=== PATIENT | female | born 1940 | race American Indian/Alaskan Native ===

== ENCOUNTER 2017-09-30 13:46 | Inpatient (IN) | payer MEDICARE ==
[2017-09-30 13:47] VITALS: BMI 48.0
[2017-09-30] MEDS ORDERED: Sodium Chloride 0.9% 500 ML IV ONE ×2 (14:34→14:48)
[2017-09-30 14:42] LABS: HEMOGLOBIN 12.9 g/dL (11.0-16.0); MONO # 0.5 K/uL (0.0-0.8); NEUT # 3.3 K/uL (1.8-7.0); NRBC % 0.1 % (0.0-2.0); WHITE BLOOD COUNT 4.6 K/uL (4.8-10.8)
[2017-09-30 14:46] LABS: BASO % 0.5 % (0.0-2.0); EOS % 0.8 % (0.0-4.0); LYMPH # 0.6 K/uL (1.0-4.3); LYMPH % 13.9 % (20.0-40.0); MEAN CORPUSCULAR HEMOGLOBIN 23.3 pg (27.0-31.0); MEAN PLATELET VOLUME 10.5 fL (7.2-11.7); MONO % 11.4 % (0.0-10.0); NEUT % 73.4 % (50.0-75.0); RBC 5.53 Mil/uL (3.80-5.20); RED CELL DISTRIBUTION WIDTH 19.2 % (11.5-14.5)
[2017-09-30 14:50] LABS: INR 1.2; MEAN CELL VOLUME 75.3 fL (81.0-99.0); PROTHROMBIN TIME 12.9 SECONDS (9.7-12.2)
[2017-09-30 15:03] LABS: ALBUMIN 4.4 g/dL (3.5-5.0)
[2017-09-30 15:04] LABS: CALCIUM 9.2 mg/dl (8.6-10.4); GFR AFRICAN-AMERICAN > 60; GFR NON-AFRICAN AMERICAN 54
[2017-09-30 15:07] LABS: ALT/SGPT 8 U/L (9-52); AST/SGOT 42 U/L (14-36); BLOOD UREA NITROGEN 8 mg/dL (7-17)
--- NOTE | 2017-09-30 15:33 | C.PDOC ---
History Of Present Illness Pt had a near-syncopal episode at home today. Time Seen by Provider: 09/30/17 14:22 Chief Complaint (Nursing): Dizziness/Lightheaded History Per: Patient Onset/Duration Of Symptoms: Hrs (this afternoon) Current Symptoms Are (Timing): Still Present Current Symptoms: Generalized weakness Activity At Onset Of Symptoms: Had Just Stood up Fall Associated With With Symptoms: No Severity: Moderate Additional History Per: Prior Records - Symptoms Of CVA Recent Head Trauma: No Past Medical History Reviewed: Historical Data, Nursing Documentation, Vital Signs Vital Signs: Last Vital Signs Temp 97.9 F 09/30/17 13:59 Pulse 61 09/30/17 13:59 Resp 16 09/30/17 13:59 BP 155/82 H 09/30/17 13:59 Pulse Ox 99 09/30/17 13:59 - Medical History PMH: Anemia, Arthritis, Atrial Fibrillation, CAD, CHF, Diabetes, Diverticulitis (Diverticulosis), Gastritis, HTN, Hypercholesterolemia Other PMH: Strabismus Surgical History: CABG (2012), Coronary Stent, Endoscopy (sm intestine 07/15/13) - [facility] Procedures COLONOSCOPY (06/10/13) CORONAR ARTERIOGR-2 CATH (06/10/13) INSERT OF MONITOR DEV INTO CHEST SUBCU/FASCIA, PERC APPROACH (04/22/15) LEFT HEART CARDIAC CATH (06/10/13) LT HEART ANGIOCARDIOGRAM (06/10/13) OTHER ENDOSCOPY OF SM INTEST (07/15/13) PACKED CELL TRANSFUSION (11/07/14) Family History: States: Unknown Family Hx - Social History Hx Tobacco Use: No Hx Alcohol Use: No Hx Substance Use: No - Immunization History Hx Tetanus Toxoid Vaccination: No Hx Influenza Vaccination: No Hx Pneumococcal Vaccination: No Review Of Systems Except As Marked, All Systems Reviewed And Found Negative. Constitutional: Positive for: Malaise. Negative for: Fever Cardiovascular: Negative for: Chest Pain Respiratory: Negative for: Shortness of Breath Gastrointestinal: Positive for: Nausea. Negative for: Vomiting, Abdominal Pain , Diarrhea Musculoskeletal: Negative for: Neck Pain, Back Pain Skin: Negative for: Rash Neurological: Negative for: Weakness, Numbness, Seizures, Altered Mental Status Physical Exam - Physical Exam Appears: Non-toxic, No Acute Distress Skin: Normal Color, Warm, Dry Head: Atraumatic, Normacephalic Eye(s): bilateral: PERRL, right: Other (Strabismus) Oral Mucosa: Dry Neck: Normal ROM, Supple Cardiovascular: Rhythm Regular Respiratory: Normal Breath Sounds, No Accessory Muscle Use Gastrointestinal/Abdominal: Soft, No Tenderness Extremity: Normal ROM, No Pedal Edema, No Calf Tenderness Neurological/Psych: Oriented x3, No Cerebellar Signs, Normal Motor, Normal Sensation ED Course And Treatment - Laboratory Results Result Diagrams: 09/30/17 14:39 09/30/17 14:39 ECG: Interpreted By Me, Viewed By Me ECG Rhythm: Sinus Rhythm, R BBB, Nonspecific Changes ECG Interpretation: Abnormal Interpretation Of ECG: Frequent PACs. LVH. Rate From EC O2 Sat by Pulse Oximetry: 99 Pulse Ox Interpretation: Normal Progress - Interventions Interventions:: Observation, Intravenous fluid - Data Reviewed Data Reviewed: Lab, Diagnostic imaging, EKG, Old records - Patient Status Patient status: Unchanged - Continuity of Care Discussed patient case with:: Patient, ED Nurse, PMD Disposition Discussed With : Darren Guardado Comment: He accepted pt on his service. Doctor Will See Patient In The: Hospital Counseled Patient/Family Regarding: Studies Performed, Diagnosis - Disposition Disposition: HOSPITALIZED Disposition Time: 15:36 Condition: FAIR Instructions: Weakness (ED) - Clinical Impression Clinical Impression: Near syncope, Nausea, Generalized weakness
[2017-09-30 15:38] LABS: SQUAMOUS EPITHIAL 1 /hpf (0-5); URINE BACTERIA RARE (<OCC); URINE BILIRUBIN NEGATIVE (NEGATIVE); URINE BLOOD 2+ (NEGATIVE); URINE CLARITY Hazy (Clear); URINE COLOR Straw (YELLOW); URINE GLUCOSE (UA) NORMAL (Normal); URINE LEUKOCYTE ESTERASE 2+ Leu/uL (Negative); URINE PROTEIN 1+ mg/dL (NEGATIVE); URINE UROBILINOGEN NORMAL mg/dL (0.2-1.0)
--- NOTE | 2017-09-30 16:40 | CP.PCM.HP ---
History of Present Illness - History of Present Illness History of Present Illness: Chief complaint: Weakness History of present illness: 77-year-old female with history of diabetes, hypertension, aortic valve replacement, CABG 1, recurrent GI bleed in the past. Patient had a few episodes of palpitation, dizziness in the past. A year and a half ago patient was hospitalized, at the time even monitoring was placed on the patient, and being managed. Patient during that time had a repeat episodes of intermittent atrial fibrillation. The patient was not able to anticoagulate because of the recurrent GI bleed in the past in spite of the extensive workup including capsule endoscopy there was no source of bleeding identified, but after the CABG, valve replacement patient is not having any bleeding episodes, her hemoglobin level is stable. Today she was doing well, around 1 PM suddenly she felt weakness generalized, associated with palpitation. She was not able to move at that time. She felt also extremely dizzy at the time no sweating noted, denied any chest pain. She felt about to fall. She stabilized, sat on the bed and called a cab and came to the emergency room. Past medical history: Hypertension diabetes CAD, aortic stenosis GI bleed Surgical history: Patient had a colonoscopy, endoscopy, capsule endoscopy, CABG 1, I did well with replacement. Allergies allergic to penicillin Family history significant for CAD, hypertension Medications reviewed Review of systems: Patient is currently having no headache or visual symptom. Episode of dizziness palpitation noted. No chest pain or shortness of breath. Leg swelling negative on examination: Vital signs stable. Chest good air entry bilaterally NONTENDER ABDOMEN NO PEDAL EDEMA CAPACITY ANALYST ALERT AWAKE ORIENTED 3 NO FUNCTIONAL NEUROLOGICAL DEFICIT MIDLINE SCAR NOTED IN THE STERNAL REGION Labs reviewed Mild elevation of the bilirubin noted. Urine showing evidence of possible UTI. EKG showing right bundle branch block pattern PVCs noted Chest x-ray pending Assessment and plan: 77-year-old female with a history of diabetes hypertension and hypercholesterolemia CAD, status post CABG. coronary artery bypass grafting 1 Aortic valve replacement Patient has even monitoring In the past patient had a few episodes of intermittent atrial fibrillation and tachycardia. Patient is currently not on any antiplatelet medications to GI bleed. We will continue to monitor the patient. Patient has a possible acute arrhythmia tachyarrhythmia likely, causing possible syncopal attack. Underlying CAPACITY ANALYST cause cannot be ruled out. Cardiology violation. Loop recorder Will get the the the analysisi possibly. DVT GI prophylaxis and will follow the patient Present on Admission - Present on Admission Any Indicators Present on Admission: No History of DVT/PE: No History of Uncontrolled Diabetes: No Urinary Catheter: No Decubitus Ulcer Present: No Past Patient History - Infectious Disease Hx of Infectious Diseases: None - Past Medical History & Family History Past Medical History?: Yes - Past Social History Smoking Status: Never Smoked - CARDIAC Hx Atrial Fibrillation: Yes Hx Congestive Heart Failure: Yes Hx Hypercholesterolemia: Yes Hx Hypertension: Yes - PULMONARY Hx Respiratory Disorders: No - NEUROLOGICAL Hx Neurological Disorder: Yes Hx Dizziness: Yes - HEENT Hx HEENT Problems: No - RENAL Hx Chronic Kidney Disease: No - ENDOCRINE/METABOLIC Hx Endocrine Disorders: Yes Hx Diabetes Mellitus Type 2: Yes - HEMATOLOGICAL/ONCOLOGICAL Hx Anemia: Yes - INTEGUMENTARY Hx Dermatological Problems: No - MUSCULOSKELETAL/RHEUMATOLOGICAL Hx Arthritis: Yes - GASTROINTESTINAL Hx Diverticulitis: Yes (Diverticulosis) Hx Gastritis: Yes - GENITOURINARY/GYNECOLOGICAL Hx Genitourinary Disorders: No - PSYCHIATRIC Hx Substance Use: No - SURGICAL HISTORY Hx Coronary Artery Bypass Graft: Yes (2012) Hx Coronary Stent: Yes - ANESTHESIA Hx Anesthesia: Yes Hx Anesthesia Reactions: No Hx Malignant Hyperthermia: No Meds Allergies/Adverse Reactions: Allergies Allergy/AdvReac Type Severity Reaction Status Date / Time Penicillins Allergy RASH Verified 09/30/17 13:55 Results - Vital Signs Recent Vital Signs: Last Vital Signs Temp 97.9 F 09/30/17 13:59 Pulse 61 09/30/17 13:59 Resp 16 09/30/17 13:59 BP 155/82 H 09/30/17 13:59 Pulse Ox 99 09/30/17 15:37 - Labs Result Diagrams: 09/30/17 14:39 09/30/17 14:39 Labs: Laboratory Results - last 24 hr 09/30/17 09/30/17 09/30/17 14:39 14:39 14:39 WBC 4.6 L RBC 5.53 H Hgb 12.9 Hct 41.6 MCV 75.3 L D MCH 23.3 L MCHC 31.0 L RDW 19.2 H Plt Count 117 L D MPV 10.5 Neut % (Auto) 73.4 Lymph % (Auto) 13.9 L Bennett % (Auto) 11.4 H Eos % (Auto) 0.8 Baso % (Auto) 0.5 Neut # (Auto) 3.3 Lymph # (Auto) 0.6 L Bennett # (Auto) 0.5 Eos # (Auto) 0.0 Baso # (Auto) 0.0 Differential Comment PT 12.9 H INR 1.2 APTT 32 Sodium 144 Potassium 4.9 Chloride 96 L Carbon Dioxide 27 Anion Gap 25 H BUN 8 Creatinine 1.0 Est GFR ( Amer) > 60 Est GFR (Non-Af Amer) 54 POC Glucose (mg/dL) Random Glucose 79 Calcium 9.2 Magnesium 2.2 Total Bilirubin 1.7 H AST 42 H ALT 8 L D Alkaline Phosphatase 75 Troponin I 0.0450 Total Protein 8.7 H Albumin 4.4 Globulin 4.3 H Albumin/Globulin Ratio 1.0 Urine Color Urine Clarity Urine pH Ur Specific [place] Urine Protein Urine Glucose (UA) Urine Ketones Urine Blood Urine Nitrate Urine Bilirubin Urine Urobilinogen Ur Leukocyte Esterase Urine WBC (Auto) Urine RBC (Auto) Ur Squamous Epith Cells Urine Bacteria 09/30/17 09/30/17 15:31 15:55 WBC RBC Hgb Hct MCV MCH MCHC RDW Plt Count MPV Neut % (Auto) Lymph % (Auto) Bennett % (Auto) Eos % (Auto) Baso % (Auto) Neut # (Auto) Lymph # (Auto) Bennett # (Auto) Eos # (Auto) Baso # (Auto) Differential Comment PT INR APTT Sodium Potassium Chloride Carbon Dioxide Anion Gap BUN Creatinine Est GFR ( Amer) Est GFR (Non-Af Amer) POC Glucose (mg/dL) 70 Random Glucose Calcium Magnesium Total Bilirubin AST ALT Alkaline Phosphatase Troponin I Total Protein Albumin Globulin Albumin/Globulin Ratio Urine Color Straw Urine Clarity Hazy Urine pH 6.0 Ur Specific [place] 1.004 Urine Protein 1+ H Urine Glucose (UA) Normal Urine Ketones 2+ H Urine Blood 2+ H Urine Nitrate Negative Urine Bilirubin Negative Urine Urobilinogen Normal Ur Leukocyte Esterase 2+ H Urine WBC (Auto) 12 H Urine RBC (Auto) 13 H Ur Squamous Epith Cells 1 Urine Bacteria Rare
[2017-10-01] MEDS: Pantoprazole 40 mg EC Tab PO SCH (10:04)
[2017-10-01 12:00] LABS: HEMOGLOBIN 12.2 g/dL (11.0-16.0); MEAN CELL VOLUME 75.2 fL (81.0-99.0); MEAN CORPUSCULAR HEMOGLOBIN 23.4 pg (27.0-31.0); MEAN CORPUSCULAR HGB CONC 31.2 g/dL (33.0-37.0); MEAN PLATELET VOLUME 10.3 fL (7.2-11.7); RBC 5.22 Mil/uL (3.80-5.20); RED CELL DISTRIBUTION WIDTH 19.2 % (11.5-14.5); WHITE BLOOD COUNT 4.1 K/uL (4.8-10.8)
[2017-10-01 12:08] LABS: ALBUMIN 3.7 g/dL (3.5-5.0); ALT/SGPT 14 U/L (9-52); AST/SGOT 27 U/L (14-36); BLOOD UREA NITROGEN 9 mg/dL (7-17); CALCIUM 9.2 mg/dl (8.6-10.4); CK-MB 0.89 ng/mL (0.0-3.38); GFR AFRICAN-AMERICAN > 60; GFR NON-AFRICAN AMERICAN 54
[2017-10-01] MEDS ORDERED: Potassium Chloride 20 mEq ER Tab PO STA ×2 (12:10→12:11)
[2017-10-01 16:21] VITALS: RESP 20
--- NOTE | 2017-10-01 19:49 | CP.PCM.PN ---
Subjective - Date & Time of Evaluation Date of Evaluation: 10/01/17 Time of Evaluation: 19:45 - Subjective Subjective: Patient noted to have a low potassium today. Which was supplemented. The patient is having regular bowel movements. No dark color stools noted. No chest pain, no dizziness, but feeling slightly weak Patient was seen by commanding officer traffic division, already echo, used to be monitoring the loop recorder On examination: Vital signs stable. Blood sugar is elevated Will get a hemoglobin A1c in the morning. Pedal edema Assessment and recommendation: 77-year-old female with a history of CAD, status post CABG 1, aortic valve replacement. History of GI bleed and multiple times in the past, received blood transfusion, also iron infusion chronic anemia Diabetes controlled well, but the episode of low blood sugar yesterday also uncontrolled now Will monitor and will follow the patient. Objective - Vital Signs/Intake and Output Vital Signs (last 24 hours): Temp Pulse Resp BP Pulse Ox 97.8 F 68 20 124/77 99 10/01/17 15:19 10/01/17 15:52 10/01/17 15:19 10/01/17 15:19 10/01/17 15:19 Intake and Output: 10/01/17 10/02/17 18:59 06:59 Intake Total 480 Balance 480 - Medications Medications: Current Medications Heparin Sodium (Porcine) (Heparin) 5,000 units SC Q8 [facility] Last Admin: 10/01/17 13:26 Dose: Not Given Losartan Potassium (Cozaar) 25 mg PO DAILY [facility] Last Admin: 10/01/17 10:04 Dose: 25 mg Pantoprazole Sodium (Protonix Ec Tab) 40 mg PO DAILY [facility] Last Admin: 10/01/17 10:04 Dose: 40 mg Rosuvastatin Calcium (Crestor) 20 mg PO HS [facility] Last Admin: 09/30/17 21:54 Dose: 20 mg - Labs Labs: 10/01/17 11:30 10/01/17 11:30 PT 12.9 SECONDS (9.7-12.2) H 09/30/17 14:39 INR 1.2 09/30/17 14:39 APTT 32 SECONDS (21-34) 09/30/17 14:39
--- NOTE | 2017-10-01 22:51 | CP.PCM.CON ---
History of Present Illness - History of Present Illness History of Present Illness: 77 F with hx of CAD, s/p CABG x 1 and SAVR GIB admitted for dizziness and hypoglycemia Check ECHO and Carotid Will follow Past Patient History - Infectious Disease Hx of Infectious Diseases: None - Past Medical History & Family History Past Medical History?: Yes - Past Social History Smoking Status: Never Smoked - CARDIAC Hx Atrial Fibrillation: Yes Hx Congestive Heart Failure: Yes Hx Hypercholesterolemia: Yes Hx Hypertension: Yes - PULMONARY Hx Respiratory Disorders: No - NEUROLOGICAL Hx Neurological Disorder: Yes Hx Dizziness: Yes - HEENT Hx HEENT Problems: No - RENAL Hx Chronic Kidney Disease: No - ENDOCRINE/METABOLIC Hx Endocrine Disorders: Yes Hx Diabetes Mellitus Type 2: Yes - HEMATOLOGICAL/ONCOLOGICAL Hx Anemia: Yes - INTEGUMENTARY Hx Dermatological Problems: No - MUSCULOSKELETAL/RHEUMATOLOGICAL Hx Arthritis: Yes - GASTROINTESTINAL Hx Diverticulitis: Yes (Diverticulosis) Hx Gastritis: Yes - GENITOURINARY/GYNECOLOGICAL Hx Genitourinary Disorders: No - PSYCHIATRIC Hx Substance Use: No - SURGICAL HISTORY Hx Coronary Artery Bypass Graft: Yes (2012) Hx Coronary Stent: Yes - ANESTHESIA Hx Anesthesia: Yes Hx Anesthesia Reactions: No Hx Malignant Hyperthermia: No Meds Allergies/Adverse Reactions: Allergies Allergy/AdvReac Type Severity Reaction Status Date / Time Penicillins Allergy RASH Verified 09/30/17 13:55 - Medications Medications: Current Medications Heparin Sodium (Porcine) (Heparin) 5,000 units SC Q8 [facility] Last Admin: 10/01/17 21:18 Dose: Not Given Losartan Potassium (Cozaar) 25 mg PO DAILY [facility] Last Admin: 10/01/17 10:04 Dose: 25 mg Pantoprazole Sodium (Protonix Ec Tab) 40 mg PO DAILY [facility] Last Admin: 10/01/17 10:04 Dose: 40 mg Rosuvastatin Calcium (Crestor) 20 mg PO HS [facility] Last Admin: 10/01/17 21:18 Dose: 20 mg Results - Vital Signs Recent Vital Signs: Last Vital Signs Temp 97.8 F 10/01/17 15:19 Pulse 68 10/01/17 15:52 Resp 20 10/01/17 15:19 BP 124/77 10/01/17 15:19 Pulse Ox 99 10/01/17 15:19 - Labs Result Diagrams: 10/01/17 11:30 10/01/17 11:30 Labs: Laboratory Results - last 24 hr 09/30/17 09/30/17 09/30/17 13:58 14:04 21:18 WBC RBC Hgb Hct MCV MCH MCHC RDW Plt Count MPV Differential Comment Sodium Potassium Chloride Carbon Dioxide Anion Gap BUN Creatinine Est GFR ( Amer) Est GFR (Non-Af Amer) POC Glucose (mg/dL) 64 L 63 L 276 H Random Glucose Calcium Magnesium Total Bilirubin AST ALT Alkaline Phosphatase Total Creatine Kinase CK-MB (Mass) Troponin I Total Protein Albumin Globulin Albumin/Globulin Ratio Stool Occult Blood 10/01/17 10/01/17 10/01/17 05:00 08:59 11:06 WBC RBC Hgb Hct MCV MCH MCHC RDW Plt Count MPV Differential Comment Sodium Potassium Chloride Carbon Dioxide Anion Gap BUN Creatinine Est GFR ( Amer) Est GFR (Non-Af Amer) POC Glucose (mg/dL) 223 H 192 H Random Glucose Calcium Magnesium Total Bilirubin AST ALT Alkaline Phosphatase Total Creatine Kinase CK-MB (Mass) Troponin I Total Protein Albumin Globulin Albumin/Globulin Ratio Stool Occult Blood Negative 10/01/17 10/01/17 10/01/17 11:30 11:30 16:35 WBC 4.1 L RBC 5.22 H Hgb 12.2 Hct 39.3 MCV 75.2 L MCH 23.4 L MCHC 31.2 L RDW 19.2 H Plt Count 114 L MPV 10.3 Differential Comment Sodium 142 Potassium 2.4 L* D Chloride 95 L Carbon Dioxide 35 H Anion Gap 15 BUN 9 Creatinine 1.0 Est GFR ( Amer) > 60 Est GFR (Non-Af Amer) 54 POC Glucose (mg/dL) 162 H Random Glucose 203 H Calcium 9.2 Magnesium 2.2 Total Bilirubin 0.7 AST 27 ALT 14 Alkaline Phosphatase 75 Total Creatine Kinase 217 H CK-MB (Mass) 0.89 Troponin I 0.0240 Total Protein 7.3 Albumin 3.7 Globulin 3.6 Albumin/Globulin Ratio 1.0 Stool Occult Blood 10/01/17 21:07 WBC RBC Hgb Hct MCV MCH MCHC RDW Plt Count MPV Differential Comment Sodium Potassium Chloride Carbon Dioxide Anion Gap BUN Creatinine Est GFR ( Amer) Est GFR (Non-Af Amer) POC Glucose (mg/dL) 212 H Random Glucose Calcium Magnesium Total Bilirubin AST ALT Alkaline Phosphatase Total Creatine Kinase CK-MB (Mass) Troponin I Total Protein Albumin Globulin Albumin/Globulin Ratio Stool Occult Blood
[2017-10-02 07:38] LABS: NEUT # 2.5 K/uL (1.8-7.0); WHITE BLOOD COUNT 4.2 K/uL (4.8-10.8)
[2017-10-02 07:43] LABS: BASO % 0.7 % (0.0-2.0); EOS % 1.1 % (0.0-4.0); HEMOGLOBIN 12.4 g/dL (11.0-16.0); MEAN CORPUSCULAR HEMOGLOBIN 23.6 pg (27.0-31.0); MEAN CORPUSCULAR HGB CONC 31.5 g/dL (33.0-37.0); MEAN PLATELET VOLUME 10.3 fL (7.2-11.7); MONO # 0.6 K/uL (0.0-0.8); MONO % 13.8 % (0.0-10.0); NEUT % 60.4 % (50.0-75.0); NRBC % 0.2 % (0.0-2.0); RBC 5.23 Mil/uL (3.80-5.20); RED CELL DISTRIBUTION WIDTH 19.2 % (11.5-14.5)
[2017-10-02 07:58] LABS: ALBUMIN 3.7 g/dL (3.5-5.0); CALCIUM 9.5 mg/dl (8.6-10.4)
[2017-10-02] MEDS: Pantoprazole 40 mg EC Tab PO SCH (10:59)
[2017-10-02] MEDS ORDERED: Potassium Chloride 20 mEq ER Tab PO ONE ×4 (11:45→21:00)
--- NOTE | 2017-10-02 14:00 | VASCLAB ---
PROCEDURE: HISTORY: Dizziness COMPARISON: None available. TECHNIQUE: Grayscale and duplex Doppler evaluation of the cervical carotid and vertebral arteries were performed. The common carotid, carotid bifurcations and cervical Internal Carotid Artery (ICA) and proximal External Carotid Artery (ECA) were evaluated. The vertebral arteries were evaluated for gross patency and flow direction. Report prepared by Aneesh Patterson, BS, RVT FINDINGS: RIGHT CAROTID ARTERIES: 1. Common Carotid Artery: No significant focal plaque formation of the right common carotid artery. Maximum Peak Systolic velocity: 63 cm/sec: End-diastolic velocity 13 cm/sec. 2. Carotid Bifurcation: plaque formation. Maximum Peak Systolic velocity: 63 cm/sec: End-diastolic velocity 10 cm/sec. 3. Internal Carotid Artery: Plaque description: 3.1. Proximal Segment: Peak systolic velocity 65 cm/sec: End-diastolic velocity 19 cm/sec - % stenosis 0-15% 3.2. Middle Segment: Peak systolic velocity 74 cm/sec: End-diastolic velocity 18 cm/sec - % stenosis 0-15% 3.3. Distal Segment: Peak systolic velocity 73 cm/sec: End-diastolic velocity 20 cm/sec - % stenosis 0-15% 4. External Carotid Artery: No significant focal plaque formation. Peak systolic velocity 84 cm/sec 5. ICA/CCA Ratio: 1.2 LEFT CAROTID ARTERIES: 1. Common Carotid Artery: No significant focal plaque formation of the left common carotid artery. Maximum Peak Systolic velocity: 70 cm/sec: End-diastolic velocity 12 cm/sec. 2. Carotid Bifurcation: plaque formation. Maximum Peak Systolic velocity: 60 cm/sec: End-diastolic velocity 18 cm/sec. 3. Internal Carotid Artery: Plaque description: 3.1. Proximal Segment: Peak systolic velocity 98 cm/sec: End-diastolic velocity 22 cm/sec - % stenosis 0-15% 3.2. Middle Segment: Peak systolic velocity 82 cm/sec: End-diastolic velocity 24 cm/sec - % stenosis 0-15% 3.3. Distal Segment: Peak systolic velocity 54 cm/sec: End-diastolic velocity 16 cm/sec - % stenosis 0-15% 4. External Carotid Artery: No significant focal plaque formation. Peak systolic velocity 86 cm/sec 5. ICA/CCA Ratio: 1.4 VERTEBRAL ARTERIES: 1. Right Vertebral Artery: The right vertebral artery flow direction is antegrade. 2. Left Vertebral Artery: The left vertebral artery flow direction is antegrade. OTHER FINDINGS: 1. Right Brachial Blood pressure: 128 mmHg. 2. Left Brachial Blood pressure: 120 mmHg. IMPRESSION: RIGHT: Duplex scan does not suggest hemodynamically significant stenosis of the right extracranial carotid arteries. Tortuosity of the right internal carotid artery. LEFT: Duplex scan does not suggest hemodynamically significant stenosis of the left extracranial carotid arteries.
[2017-10-02 18:32] LABS: ALBUMIN 3.9 g/dL (3.5-5.0); ALT/SGPT 16 U/L (9-52); AST/SGOT 31 U/L (14-36); BLOOD UREA NITROGEN 10 mg/dL (7-17); CALCIUM 9.6 mg/dl (8.6-10.4); GFR AFRICAN-AMERICAN > 60; GFR NON-AFRICAN AMERICAN 54
--- NOTE | 2017-10-02 23:36 | CP.PCM.PN ---
Subjective - Date & Time of Evaluation Date of Evaluation: 10/02/17 Time of Evaluation: 16:20 - Subjective Subjective: Patient seen and evaluated Carotids: Normal ECHO: Normal EF, Normal functioning of SAVR Objective - Vital Signs/Intake and Output Vital Signs (last 24 hours): Temp Pulse Resp BP Pulse Ox 97.8 F 89 20 120/70 99 10/02/17 15:20 10/02/17 16:10 10/02/17 15:20 10/02/17 15:20 10/02/17 15:20 - Medications Medications: Current Medications Heparin Sodium (Porcine) (Heparin) 5,000 units SC Q8 [facility] Last Admin: 10/02/17 21:09 Dose: Not Given Losartan Potassium (Cozaar) 25 mg PO DAILY [facility] Last Admin: 10/02/17 10:59 Dose: 25 mg Pantoprazole Sodium (Protonix Ec Tab) 40 mg PO DAILY [facility] Last Admin: 10/02/17 10:59 Dose: 40 mg Rosuvastatin Calcium (Crestor) 20 mg PO HS [facility] Last Admin: 10/02/17 21:24 Dose: 20 mg - Labs Labs: 10/02/17 07:26 10/02/17 18:15 PT 12.9 SECONDS (9.7-12.2) H 09/30/17 14:39 INR 1.2 09/30/17 14:39 APTT 32 SECONDS (21-34) 09/30/17 14:39
[2017-10-03] MEDS: Pantoprazole 40 mg EC Tab PO SCH (09:36)
[2017-10-03 10:17] LABS: CALCIUM 9.5 mg/dl (8.6-10.4)
--- NOTE | 2017-10-03 19:00 | CP.PCM.PN ---
Subjective - Date & Time of Evaluation Date of Evaluation: 10/03/17 Time of Evaluation: 19:00 - Subjective Subjective: Patient is feeling well. No chest pain or shortness of breath. Denies any nausea vomiting. Weakness noted. On examination: HEENT PERRLA, neck supple No thyromegaly was noted and no cervical adenopathy noted Chest bilateral good air entry, no wheezing or rales noted CVS regular heart sound, no murmur Abdomen soft and no organomegaly Extremities no pedal edema, no leg swelling, pedal pulses are good. 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 Assessment/recommendation: 77-year-old female with history of hypertension Hyperlipidemia Diabetes. Elevated blood sugar noted. Will monitor. Underlying arrhythmias cannot be ruled out. Seen by capacitor tester. Awaiting the result from loop recorder interrogation. Will follow the patient The results are negative, will DC the patient in the morning Objective - Vital Signs/Intake and Output Vital Signs (last 24 hours): Temp Pulse Resp BP Pulse Ox 98.0 F 93 H 20 113/74 99 10/03/17 15:07 10/03/17 15:07 10/03/17 15:07 10/03/17 15:07 10/03/17 15:07 - Medications Medications: Current Medications Heparin Sodium (Porcine) (Heparin) 5,000 units SC Q8 [facility] Last Admin: 10/03/17 14:48 Dose: Not Given Losartan Potassium (Cozaar) 25 mg PO DAILY [facility] Last Admin: 10/03/17 09:36 Dose: 25 mg Pantoprazole Sodium (Protonix Ec Tab) 40 mg PO DAILY [facility] Last Admin: 10/03/17 09:36 Dose: 40 mg Rosuvastatin Calcium (Crestor) 20 mg PO HS [facility] Last Admin: 10/02/17 21:24 Dose: 20 mg - Labs Labs: 10/02/17 07:26 10/03/17 07:38 PT 12.9 SECONDS (9.7-12.2) H 09/30/17 14:39 INR 1.2 09/30/17 14:39 APTT 32 SECONDS (21-34) 09/30/17 14:39
--- NOTE | 2017-10-03 19:00 | CP.PCM.PN ---
Subjective - Date & Time of Evaluation Date of Evaluation: 10/02/17 Time of Evaluation: 18:59 - Subjective Subjective: Patient is feeling well. No chest pain or shortness of breath. Denies any nausea vomiting. Weakness noted. On examination: HEENT PERRLA, neck supple No thyromegaly was noted and no cervical adenopathy noted Chest bilateral good air entry, no wheezing or rales noted CVS regular heart sound, no murmur Abdomen soft and no organomegaly Extremities no pedal edema, no leg swelling, pedal pulses are good. 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 Assessment/recommendation: 77-year-old female with history of hypertension Hyperlipidemia Diabetes. Elevated blood sugar noted. Will monitor. Underlying arrhythmias cannot be ruled out. Seen by adjunct faculty for medical terminology. Awaiting the result from loop recorder interrogation. Will follow the patient Objective - Vital Signs/Intake and Output Vital Signs (last 24 hours): Temp Pulse Resp BP Pulse Ox 98.0 F 93 H 20 113/74 99 10/03/17 15:07 10/03/17 15:07 10/03/17 15:07 10/03/17 15:07 10/03/17 15:07 - Medications Medications: Current Medications Heparin Sodium (Porcine) (Heparin) 5,000 units SC Q8 [facility] Last Admin: 10/03/17 14:48 Dose: Not Given Losartan Potassium (Cozaar) 25 mg PO DAILY [facility] Last Admin: 10/03/17 09:36 Dose: 25 mg Pantoprazole Sodium (Protonix Ec Tab) 40 mg PO DAILY [facility] Last Admin: 10/03/17 09:36 Dose: 40 mg Rosuvastatin Calcium (Crestor) 20 mg PO HS [facility] Last Admin: 10/02/17 21:24 Dose: 20 mg - Labs Labs: 10/02/17 07:26 10/03/17 07:38 PT 12.9 SECONDS (9.7-12.2) H 09/30/17 14:39 INR 1.2 09/30/17 14:39 APTT 32 SECONDS (21-34) 09/30/17 14:39
--- NOTE | 2017-10-03 22:34 | CARD ---
APPROVED REPORT EXAM: Two-dimensional and M-mode echocardiogram with Doppler and color Doppler. Other Information Quality : GoodRhythm : INDICATION Dizziness and Vertigo Palpitations Surgery/Intervention Status/Post Aortic Valve Replacement: Bioprosthetic CABG: Date: 2012 RISK FACTORS Obesity Diabetes 2D DIMENSIONS IVSd1.3 (0.7-1.1cm)LVDd3.8 (3.9-5.9cm) LVOT Diameter1.7 (1.8-2.4cm)PWd1.5 (0.7-1.1cm) LVDs1.8 (2.5-4.0cm)FS (%) 51.7 % LVEF (%)83.5 (>50%) M-Mode DIMENSIONS RVDd1.46 (2.1-3.2cm)Left Atrium (MM)3.87 (2.5-4.0cm) IVSd1.53 (0.7-1.1cm)Aortic Root2.44 (2.2-3.7cm) LVDd4.07 (4.0-5.6cm)Aortic Cusp Exc.1.49 (1.5-2.0cm) PWd1.27 (0.7-1.1cm)FS (%) 50 % LVDs2.05 (2.0-3.8cm)LVEF (%)81 (>50%) Aortic Valve AoV Peak Hanwnmdm355.0cm/sAoV VTI56.2cmAO Peak GR.36mmHg LVOT Peak Evgopaqy908.8cm/sLVOT VTI26.10cmAO Mean GR.19mmHg EMGA (VMAX)0.81as3FPM (VTI)1.00cm2 Mitral Valve MV E Bcusiuwo82.8cm/sMV A Tsoqauwy589.1cm/sE/A ratio0.8 TDI E/Lateral E'0.0E/Medial E'0.0 Tricuspid Valve TR Peak Ndwuvhbe125be/sTR Peak Gr.48ylCzYPKL48zwZu LEFT VENTRICLE There is mild concentric left ventricular hypertrophy. Left ventricle systolic function is normal. The Ejection Fraction is >70%. There is normal LV segmental wall motion. The left ventricular diastolic function is abnormal. Transmitral Doppler flow pattern is Grade I-abnormal relaxation pattern. No left ventricle thrombus noted on this study. RIGHT VENTRICLE The right ventricle is normal size. The right ventricular systolic function is normal. ATRIA The left atrium size is normal. The right atrium size is normal. AORTIC VALVE Calculated aortic valve area is 1.0 cm2 with maximum pressure gradient of 36 mmHg and mean pressure gradient of 19 mmHg. There is a bioprosthetic aortic valve prosthesis. The prosthetic aortic valve appears normal. Bioprosthesis leaflets are not well visualized. MITRAL VALVE Mitral annular calcification is mild to moderate. There is no evidence of mitral valve prolapse. There is no mitral valve stenosis. There is no mitral valve regurgitation noted. TRICUSPID VALVE There is mild tricuspid regurgitation. Right ventricular systolic pressure is estimated at 30-40 mmHg. There is no pulmonary hypertension. There is no tricuspid valve prolapse or vegetation. There is no tricuspid valve stenosis. PULMONIC VALVE The pulmonic valve is not well visualized. There is mild pulmonic valvular regurgitation. GREAT VESSELS The aortic root is normal in size. The IVC is normal in size and collapses >50% with inspiration. PERICARDIAL EFFUSION There is no pericardial effusion. There is no pleural effusion. <Conclusion> There is mild concentric left ventricular hypertrophy. Left ventricle systolic function is normal. The Ejection Fraction is >70%. The left ventricular diastolic function is abnormal. The right ventricle is normal size. The right ventricular systolic function is normal. The left atrium size is normal. The right atrium size is normal. There is a bioprosthetic aortic valve prosthesis. The prosthetic aortic valve appears normal. Bioprosthesis leaflets are not well visualized. Calculated aortic valve area is 1.0 cm2 with maximum pressure gradient of 36 mmHg and mean pressure gradient of 19 mmHg. There is mild tricuspid regurgitation. There is mild pulmonic valvular regurgitation.
--- NOTE | 2017-10-04 00:58 | CP.PCM.PN ---
Subjective - Date & Time of Evaluation Date of Evaluation: 10/03/17 Time of Evaluation: 20:40 - Subjective Subjective: Patient's LINC device reports no A Fib, pauses or other arrhythmias Medical mgt for dizziness Objective - Vital Signs/Intake and Output Vital Signs (last 24 hours): Temp Pulse Resp BP Pulse Ox 98.6 F 93 H 20 120/74 98 10/03/17 23:00 10/03/17 23:00 10/03/17 23:00 10/03/17 23:00 10/03/17 23:00 - Medications Medications: Current Medications Heparin Sodium (Porcine) (Heparin) 5,000 units SC Q8 [facility] Last Admin: 10/03/17 22:57 Dose: Not Given Losartan Potassium (Cozaar) 25 mg PO DAILY [facility] Last Admin: 10/03/17 09:36 Dose: 25 mg Pantoprazole Sodium (Protonix Ec Tab) 40 mg PO DAILY [facility] Last Admin: 10/03/17 09:36 Dose: 40 mg Rosuvastatin Calcium (Crestor) 20 mg PO HS [facility] Last Admin: 10/03/17 22:56 Dose: 20 mg - Labs Labs: 10/02/17 07:26 10/03/17 07:38 PT 12.9 SECONDS (9.7-12.2) H 09/30/17 14:39 INR 1.2 09/30/17 14:39 APTT 32 SECONDS (21-34) 09/30/17 14:39
[2017-10-04 08:09] VITALS: BP 118/74; TEMP 97.7; O2SAT 99
[2017-10-04 08:57] VITALS: PULSE 96
[2017-10-04] MEDS: Pantoprazole 40 mg EC Tab PO SCH (09:26)
--- NOTE | 2017-10-04 10:48 | CP.PCM.PN ---
Subjective - Date & Time of Evaluation Date of Evaluation: 10/04/17 Time of Evaluation: 10:40 - Subjective Subjective: Patient seen today, denies any chest pain, sob, dizziness, palpitations wants to go nohemi e no further syncopal episode reported since admission no events recorded on monitor loop recorder interrogated yesterday and no events recorded as per Dr. Rodrigues Objective - Vital Signs/Intake and Output Vital Signs (last 24 hours): Temp Pulse Resp BP Pulse Ox 97.7 F 96 H 20 118/74 99 10/04/17 07:00 10/04/17 08:48 10/04/17 07:00 10/04/17 07:00 10/04/17 07:00 - Medications Medications: Current Medications Heparin Sodium (Porcine) (Heparin) 5,000 units SC Q8 [facility] Last Admin: 10/04/17 06:01 Dose: Not Given Losartan Potassium (Cozaar) 25 mg PO DAILY [facility] Last Admin: 10/04/17 09:26 Dose: 25 mg Pantoprazole Sodium (Protonix Ec Tab) 40 mg PO DAILY [facility] Last Admin: 10/04/17 09:26 Dose: 40 mg Rosuvastatin Calcium (Crestor) 20 mg PO HS [facility] Last Admin: 10/03/17 22:56 Dose: 20 mg - Labs Labs: 10/02/17 07:26 10/03/17 07:38 PT 12.9 SECONDS (9.7-12.2) H 09/30/17 14:39 INR 1.2 09/30/17 14:39 APTT 32 SECONDS (21-34) 09/30/17 14:39 - Constitutional Appears: Well, No Acute Distress - Respiratory Exam Respiratory Exam: Clear to Ausculation Bilateral, NORMAL BREATHING PATTERN - Cardiovascular Exam Cardiovascular Exam: REGULAR RHYTHM, +S1, +S2 Assessment and Plan - Assessment and Plan (Free Text) Assessment: A/P 77 yr old female with pmhx of Diabetes, , HTN, Hypercholesterolemia admitted with near syncope Loop recorder interrogated and no arrythmia, a fib recorded as per Dr. Rodrigues D/w Dr. Guardado stable for discharge home today and f/u with Dr. Guardado office in [address] Rodrigues office in 2 weeks discharge plan discussed with patient who understands and agrees with plan
== END 2017-10-04 12:27 | disposition home or self-care (01) | DRG 312 ==
LOC: C.ER 13:46 → C.9E 15:37 → C.6T 16:50 → OBSVTOIN 10-02 17:14
PROVIDERS: ADMIT Internal Medicine; ATTEND Internal Medicine
DX: R55 Syncope and collapse (principal); N39.0 Urinary tract infection, site not specified; I11.0 Hypertensive heart disease with heart failure; I50.9 Heart failure, unspecified; I25.10 Atherosclerotic heart disease of native coronary artery without angina pectoris; D64.9 Anemia, unspecified; E11.649 Type 2 diabetes mellitus with hypoglycemia without coma; E78.00 Pure hypercholesterolemia, unspecified; I48.91 Unspecified atrial fibrillation; Z95.5 Presence of coronary angioplasty implant and graft; Z79.84 Long term (current) use of oral hypoglycemic drugs; Z88.0 Allergy status to penicillin; Z95.1 Presence of aortocoronary bypass graft; Z95.2 Presence of prosthetic heart valve

== ENCOUNTER 2018-06-25 18:01 | Emergency (ER) | payer MEDICARE ==
[2018-06-25 18:02] VITALS: BMI 48.0
[2018-06-25 18:49] LABS: URINE BACTERIA FEW (<OCC); URINE BILIRUBIN NEGATIVE (NEGATIVE); URINE BLOOD 3+ (NEGATIVE); URINE CLARITY Hazy (Clear); URINE COLOR Red (YELLOW); URINE GLUCOSE (UA) NORMAL (Normal); URINE LEUKOCYTE ESTERASE 2+ Leu/uL (Negative); URINE PROTEIN 2+ mg/dL (NEGATIVE); WBC CLUMPS MOD /hpf
--- NOTE | 2018-06-25 19:15 | C.PDOC ---
History Of Present Illness 78 year old female presents to the ED complaining of urinary frequency and mild hematuria since today. Patient reports prior history of UTI. Denies any fever, chills, n/v/d, or any other symptoms. Time Seen by Provider: 06/25/18 19:09 Chief Complaint (Nursing): Female Genitourinary History Per: Patient History/Exam Limitations: no limitations Onset/Duration Of Symptoms: Hrs Current Symptoms Are (Timing): Still Present Associated Symptoms: Urinary Symptoms. denies: Fever, Chills, Nausea, Vomiting, Diarrhea, Back Pain Recent travel outside of the [place]: No Abnormal Vaginal Bleeding: No Past Medical History Reviewed: Historical Data, Nursing Documentation, Vital Signs Vital Signs: Last Vital Signs Temp 98.4 F 06/25/18 18:07 Pulse 100 H 06/25/18 18:07 Resp 20 06/25/18 18:07 BP 129/68 06/25/18 18:07 Pulse Ox 96 06/25/18 18:07 - Medical History PMH: Anemia, Arthritis, Atrial Fibrillation, CAD, CHF, Diabetes, Diverticulitis (Diverticulosis), Gastritis, HTN, Hypercholesterolemia Denies: Chronic Kidney Disease Surgical History: CABG (2012), Coronary Stent, Endoscopy (sm intestine 07/15/13) - [facility] Procedures COLONOSCOPY (06/10/13) CORONAR ARTERIOGR-2 CATH (06/10/13) INSERT OF MONITOR DEV INTO CHEST SUBCU/FASCIA, PERC APPROACH (04/22/15) LEFT HEART CARDIAC CATH (06/10/13) LT HEART ANGIOCARDIOGRAM (06/10/13) OTHER ENDOSCOPY OF SM INTEST (07/15/13) PACKED CELL TRANSFUSION (11/07/14) Family History: States: No Known Family Hx - Social History Hx Tobacco Use: No Hx Alcohol Use: No Hx Substance Use: No - Immunization History Hx Tetanus Toxoid Vaccination: No Hx Influenza Vaccination: No Hx Pneumococcal Vaccination: No Review Of Systems Except As Marked, All Systems Reviewed And Found Negative. Constitutional: Negative for: Fever, Chills Gastrointestinal: Negative for: Nausea, Vomiting, Abdominal Pain, Diarrhea Genitourinary: Positive for: Frequency, Hematuria. Negative for: Dysuria, Vaginal Discharge, Vaginal Bleeding Musculoskeletal: Negative for: Back Pain Physical Exam - Physical Exam Appears: Non-toxic, No Acute Distress, Other (obese black female ) Skin: Warm, Dry, No Rash Head: Normacephalic Eye(s): bilateral: Normal Inspection Nose: Normal Oral Mucosa: Moist Neck: Supple Chest: Symmetrical Cardiovascular: Rhythm Regular Respiratory: Normal Breath Sounds, No Rales, No Rhonchi, No Wheezing Gastrointestinal/Abdominal: Soft, No Tenderness, No Guarding, No Rebound Neurological/Psych: Oriented x3, Normal Speech Gait: Steady ED Course And Treatment - Laboratory Results Lab Interpretation: Abnormal (ua 163 WBC, 1300 RBC) O2 Sat by Pulse Oximetry: 96 (RA) Pulse Ox Interpretation: Normal Medical Decision Making Medical Decision Making: Plan - Macrobid 100mg PO - Pyridium 100mg PO Disposition Doctor Will See Patient In The: Office Counseled Patient/Family Regarding: Studies Performed, Diagnosis - Disposition Referrals: Darren Guardado MD [Staff Provider] - Disposition: HOME/ ROUTINE Disposition Time: 19:15 Condition: GOOD Additional Instructions: Macrobid 100 mg twice a day for 5 days drink plenty of water follow-up with Dr. Mtz as needed. Prescriptions: Nitrofurantoin Macrocrystals [Macrobid] 100 mg PO BID #9 cap Instructions: Urinary Tract Infections in Adults, Blood in the Urine (Hematuria) in Adults Forms: [facility] ([place] Citizen) - Clinical Impression Clinical Impression: Hematuria - Scribe Statement The provider has reviewed the documentation as recorded by the Scribannika Beltre All medical record entries made by the Scribe were at my direction and personally dictated by me. I have reviewed the chart and agree that the record accurately reflects my personal performance of the history, physical exam, medical decision making, and the department course for this patient. I have also personally directed, reviewed, and agree with the discharge instructions and disposition.
[2018-06-25 19:30] VITALS: BP 120/70; PULSE 80; RESP 14; TEMP 98.5
[2018-06-25 23:32] VITALS: O2SAT 96
== END 2018-06-25 19:29 | disposition home or self-care (01) ==
LOC: C.ER 18:01
DX: R31.9 Hematuria, unspecified (principal); E11.9 Type 2 diabetes mellitus without complications; E78.00 Pure hypercholesterolemia, unspecified; I25.10 Atherosclerotic heart disease of native coronary artery without angina pectoris; I48.91 Unspecified atrial fibrillation; I50.9 Heart failure, unspecified; I10 Essential (primary) hypertension

== ENCOUNTER 2018-10-05 10:01 | Inpatient (IN) | payer MEDICARE ==
[2018-10-05 10:12] VITALS: BMI 38.6
--- NOTE | 2018-10-05 11:19 | C.PDOC ---
History Of Present Illness 78 y/o female pt with hx of open-heart (2012) surgery and CHF presents to the ER c/o frequent urination that started this morning. Associated sx includes slight pressure upon urinating. Pt denies dysuria, fever, vomiting, SOB, body ache and diarrhea. PMD: Dr. Guardado Time Seen by Provider: 10/05/18 11:10 Chief Complaint (Nursing): Female Genitourinary History Per: Patient History/Exam Limitations: no limitations Onset/Duration Of Symptoms: Hrs Current Symptoms Are (Timing): Still Present Past Medical History Reviewed: Historical Data, Nursing Documentation, Vital Signs Vital Signs: Last Vital Signs Temp 98.2 F 10/05/18 10:12 Pulse 108 H 10/05/18 10:12 Resp 20 10/05/18 10:12 BP 98/50 L 10/05/18 10:12 Pulse Ox 100 10/05/18 10:12 - Medical History PMH: Anemia, Arthritis, Atrial Fibrillation, CAD, CHF, Diabetes, Diverticulitis (Diverticulosis), Gastritis, HTN, Hypercholesterolemia Surgical History: CABG (2012), Coronary Stent, Endoscopy (sm intestine 07/15/13) - [facility] Procedures COLONOSCOPY (06/10/13) CORONAR ARTERIOGR-2 CATH (06/10/13) INSERT OF MONITOR DEV INTO CHEST SUBCU/FASCIA, PERC APPROACH (04/22/15) LEFT HEART CARDIAC CATH (06/10/13) LT HEART ANGIOCARDIOGRAM (06/10/13) OTHER ENDOSCOPY OF SM INTEST (07/15/13) PACKED CELL TRANSFUSION (11/07/14) Family History: States: Unknown Family Hx - Social History Hx Tobacco Use: No Hx Alcohol Use: No Hx Substance Use: No - Immunization History Hx Tetanus Toxoid Vaccination: No Hx Influenza Vaccination: No Hx Pneumococcal Vaccination: No Review Of Systems Except As Marked, All Systems Reviewed And Found Negative. Constitutional: Negative for: Fever Genitourinary: Negative for: Dysuria Physical Exam - Physical Exam Additional Physical Exam Comments: Constitutional: No acute distress. Head: Normocephalic. Atraumatic. Eyes: PERRL. ENT: Moist mucous membranes. Neck: Supple. Cardiovascular: Tachycardic rate. Radial pulse 2+ bilaterally. Chest: No tenderness. Respiratory: Clear to auscultation bilaterally. GI: Soft. Nontender. Nondistended. Rectal: Guaiac positive, nonbleeding hemorrhoid, brown stool. : Urine grossly bloody. Back: No CVA tenderness. Musculoskeletal: No tenderness or swelling of extremities. Skin: No rash. Neurologic: Alert, no focal deficit. ED Course And Treatment - Laboratory Results Result Diagrams: 10/05/18 11:25 10/05/18 11:25 O2 Sat by Pulse Oximetry: 100 (RA) Pulse Ox Interpretation: Normal Medical Decision Making Medical Decision Making: Plans: -- chem labs -- blood work -- CXR CXR no acute disease. Blood transfusion ordered. Dr. Guardado accepts patient to his service on tele. Disposition - Disposition Disposition: HOSPITALIZED Disposition Time: 12:57 Condition: FAIR Forms: [facility] ([place]ian) - Clinical Impression Clinical Impression: Gastrointestinal hemorrhage, Gross hematuria, Symptomatic anemia - Scribe Statement The provider has reviewed the documentation as recorded by the Polo Randall Do Provider Attestation: All medical record entries made by the Delmyibe were at my direction and personally dictated by me. I have reviewed the chart and agree that the record accurately reflects my personal performance of the history, physical exam, medical decision making, and the department course for this patient. I have also personally directed, reviewed, and agree with the discharge instructions and disposition.
[2018-10-05 11:35] LABS: MEAN CORPUSCULAR HEMOGLOBIN 21.7 pg (27.0-31.0); MEAN CORPUSCULAR HGB CONC 30.7 g/dL (33.0-37.0); MEAN PLATELET VOLUME 10.6 fL (7.2-11.7); RBC 3.31 Mil/uL (3.80-5.20); RED CELL DISTRIBUTION WIDTH 19.5 % (11.5-14.5); WHITE BLOOD COUNT 4.4 K/uL (4.8-10.8)
[2018-10-05 11:41] LABS: HEMOGLOBIN 7.2 g/dL (11.0-16.0); MEAN CELL VOLUME 70.9 fL (81.0-99.0)
[2018-10-05 11:51] LABS: ALB/GLOB RATIO 1.3 (1.0-2.1); ALBUMIN 3.4 g/dL (3.5-5.0); ALT/SGPT 8 U/L (9-52); AST/SGOT 21 U/L (14-36); BLOOD UREA NITROGEN 8 mg/dL (7-17); GFR NON-AFRICAN AMERICAN > 60
[2018-10-05 11:57] LABS: SQUAMOUS EPITHIAL 28 /hpf (0-5); URINE BILIRUBIN NEGATIVE (NEGATIVE); URINE BLOOD 3+ (NEGATIVE); URINE COLOR Red (YELLOW); URINE GLUCOSE (UA) 1+ mg/dL (Normal); URINE LEUKOCYTE ESTERASE NEG Leu/uL (Negative); URINE PROTEIN 2+ mg/dL (NEGATIVE); URINE UROBILINOGEN NORMAL mg/dL (0.2-1.0)
[2018-10-05 12:01] LABS: URINE CLARITY Turbid (Clear)
[2018-10-05 12:16] LABS: ABG ALLEN TEST POS; ARTERIAL BLOOD GAS HCO3 23.6 mmol/L (21-28); ARTERIAL BLOOD GAS O2 SAT 99.9 % (95-98); ARTERIAL BLOOD GAS PCO2 33 mm/Hg (35-45); ARTERIAL BLOOD GAS PH 7.43 (7.35-7.45); ARTERIAL BLOOD GAS PO2 104 mm/Hg (80-100); ARTERIAL BLOOD GAS TCO2 22.9 mmol/L (22-28)
[2018-10-05 12:18] LABS: EOS # 0.1 K/uL (0.0-0.7); LYMPH # 0.9 K/uL (1.0-4.3); MONO # 0.2 K/uL (0.0-0.8); NEUT # 3.1 K/uL (1.8-7.0)
[2018-10-05 12:41] LABS: LIPASE 35 U/L (23-300)
[2018-10-05 12:51] LABS: B-TYPE NATRIURETIC PEPTIDE 419 pg/mL (0-900)
--- NOTE | 2018-10-05 12:51 | RAD ---
Date of service: 10/05/2018 HISTORY: r/o PNA COMPARISON: 04/17/2016. FINDINGS: LUNGS: The lungs are well inflated and clear. PLEURA: No pleural effusions or pneumothorax. CARDIOVASCULAR: The heart is normal in size. Status post CABG. There are aortic atherosclerotic calcifications present. OSSEOUS STRUCTURES: Within normal limits for the patient's age. VISUALIZED UPPER ABDOMEN: Normal. OTHER FINDINGS: None. IMPRESSION: No active pulmonary disease.
[2018-10-05 13:03] LABS: INR 1.1; PROTHROMBIN TIME 12.2 SECONDS (9.7-12.2)
[2018-10-05] MEDS ORDERED: Potassium Chloride 20 mEq ER Tab PO ONE (15:52)
[2018-10-05] MEDS ORDERED: Potassium Chloride 20 mEq 100 ML ONE (15:52)
[2018-10-05] MEDS: Potassium Chloride 20 mEq ER Tab PO SCH (16:00)
[2018-10-05] MEDS ORDERED: Sodium Chloride 0.9% 250 ML IV ONE (17:24)
[2018-10-05] MEDS ORDERED: Dextrose 50% SYRINGE Inj (50 ml) IV PRN (17:28)
[2018-10-05] MEDS ORDERED: Glucagon Recombinant 1 mg Inj IM PRN (17:28)
[2018-10-05] MEDS: Ciprofloxacin 200mg/100ml D5W 100 ML IVPB SCH (20:00)
[2018-10-05 21:19] LABS: HEMOGLOBIN 6.8 g/dL (11.0-16.0); MEAN CELL VOLUME 70.1 fL (81.0-99.0); MEAN CORPUSCULAR HEMOGLOBIN 20.9 pg (27.0-31.0); MEAN CORPUSCULAR HGB CONC 29.9 g/dL (33.0-37.0); RBC 3.27 Mil/uL (3.80-5.20); RED CELL DISTRIBUTION WIDTH 19.6 % (11.5-14.5)
[2018-10-05 21:24] LABS: WHITE BLOOD COUNT 6.9 K/uL (4.8-10.8)
--- NOTE | 2018-10-05 22:30 | CP.PCM.HP ---
History of Present Illness - History of Present Illness History of Present Illness: Chief complaint: hematuria for one day duration History of present illness: 78-year-old female with history of diabetes, hypertension, aortic valve replacement, CABG 1, recurrent GI bleed in the past. pt admitted with clots of bleeding while urinating for one day. no such history in the past low HB noted no chest pain no cough no abdominal pain The patient was not able to anticoagulate because of the recurrent GI bleed in the past in spite of the extensive workup including capsule endoscopy there was no source of bleeding identified, but after the CABG, valve replacement patient is not having any bleeding episodes her hemoglobin level is low. Past medical history: Hypertension diabetes CAD, aortic stenosis GI bleed Surgical history: Patient had a colonoscopy, endoscopy, capsule endoscopy, CABG 1, I did well with replacement. Allergies allergic to penicillin Family history significant for CAD, hypertension Medications reviewed Review of systems: Patient is currently having no headache or visual symptom. Episode of dizziness palpitation noted. No chest pain or shortness of breath. Leg swelling negative on examination: Vital signs stable. 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 coronary artery bypass grafting 1 Aortic valve replacement In the past patient had a few episodes of intermittent atrial fibrillation and tachycardia. Patient is currently not on any antiplatelet medications to GI bleed. admitted with hematuria with clots also bleeding with anemia DVT GI prophylaxis and will follow the patient Present on Admission - Present on Admission Any Indicators Present on Admission: No History of DVT/PE: No History of Uncontrolled Diabetes: No Urinary Catheter: No Decubitus Ulcer Present: No Past Patient History - Infectious Disease Hx of Infectious Diseases: None - Past Medical History & Family History Past Medical History?: Yes - Past Social History Smoking Status: Never Smoked - CARDIAC Hx Atrial Fibrillation: Yes Hx Congestive Heart Failure: Yes Hx Hypercholesterolemia: Yes Hx Hypertension: Yes - PULMONARY Hx Respiratory Disorders: No - NEUROLOGICAL Hx Neurological Disorder: Yes Hx Dizziness: Yes - HEENT Hx HEENT Problems: No - RENAL Hx Chronic Kidney Disease: No - ENDOCRINE/METABOLIC Hx Endocrine Disorders: Yes Hx Diabetes Mellitus Type 2: Yes - HEMATOLOGICAL/ONCOLOGICAL Hx Anemia: Yes - INTEGUMENTARY Hx Dermatological Problems: No - MUSCULOSKELETAL/RHEUMATOLOGICAL Hx Falls: No - GASTROINTESTINAL Hx Diverticulitis: Yes (Diverticulosis) Hx Gastritis: Yes - GENITOURINARY/GYNECOLOGICAL Hx Genitourinary Disorders: No - PSYCHIATRIC Hx Substance Use: No - SURGICAL HISTORY Hx Coronary Artery Bypass Graft: Yes (2012) Hx Coronary Stent: Yes - ANESTHESIA Hx Anesthesia: Yes Hx Anesthesia Reactions: No Hx Malignant Hyperthermia: No Meds Allergies/Adverse Reactions: Allergies Allergy/AdvReac Type Severity Reaction Status Date / Time Penicillins Allergy RASH Verified 10/05/18 10:11 Results - Vital Signs Recent Vital Signs: Last Vital Signs Temp 97.8 F 10/05/18 22:28 Pulse 92 H 10/05/18 22:28 Resp 20 10/05/18 22:28 BP 99/56 L 10/05/18 22:28 Pulse Ox 97 10/05/18 17:00 - Labs Result Diagrams: 10/09/18 08:26 10/09/18 11:30 Labs: Laboratory Results - last 24 hr 10/05/18 10/05/18 10/05/18 11:25 11:25 11:25 WBC 4.4 L RBC 3.31 L Hgb 7.2 L D Hct 23.5 L MCV 70.9 L D MCH 21.7 L MCHC 30.7 L RDW 19.5 H Plt Count 202 MPV 10.6 Neut % (Auto) 71.0 Lymph % (Auto) 20.0 [place] % (Auto) 6.0 Eos % (Auto) 2.0 Baso % (Auto) 1.0 Neut # (Auto) 3.1 Lymph # (Auto) 0.9 L [place] # (Auto) 0.2 Eos # (Auto) 0.1 Baso # (Auto) 0.0 PT INR APTT Puncture Site pCO2 pO2 HCO3 ABG pH ABG Total CO2 ABG O2 Saturation ABG Base Excess Nav Test ABG Potassium Glucose Lactate Crit Value Called To Crit Value Called By Crit Value Read Back Blood Gas Notified Time Sodium 138 Potassium 2.9 L Chloride 104 Carbon Dioxide 23 Anion Gap 14 BUN 8 Creatinine 0.7 Est GFR ( Amer) > 60 Est GFR (Non-Af Amer) > 60 POC Glucose (mg/dL) Random Glucose 114 H Calcium 9.0 Total Bilirubin 0.5 AST 21 ALT 8 L D Alkaline Phosphatase 52 NT-Pro-B Natriuret Pep 419 Total Protein 6.0 L Albumin 3.4 L Globulin 2.7 Albumin/Globulin Ratio 1.3 Lipase 35 Arterial Blood Potassium Urine Color Red Urine Clarity Turbid Urine pH 7.0 Ur Specific [place] 1.012 Urine Protein 2+ H Urine Glucose (UA) 1+ Urine Ketones Trace Urine Blood 3+ H Urine Nitrate Negative Urine Bilirubin Negative Urine Urobilinogen Normal Ur Leukocyte Esterase Neg Urine RBC (Auto) 67729 H Ur Squamous Epith Cells 28 H Blood Type Antibody Screen 10/05/18 10/05/18 10/05/18 11:32 12:11 12:26 WBC RBC Hgb Hct MCV MCH MCHC RDW Plt Count MPV Neut % (Auto) Lymph % (Auto) [place] % (Auto) Eos % (Auto) Baso % (Auto) Neut # (Auto) Lymph # (Auto) [place] # (Auto) Eos # (Auto) Baso # (Auto) PT 12.2 INR 1.1 APTT 32 Puncture Site Rra pCO2 33 L pO2 104 H HCO3 23.6 ABG pH 7.43 ABG Total CO2 22.9 ABG O2 Saturation 99.9 H ABG Base Excess -1.7 Nav Test Pos ABG Potassium 2.5 L* Glucose 96 Lactate 1.2 Crit Value Called To Dmitry reyes md Crit Value Called By Jumana easton fairing man Crit Value Read Back Y Blood Gas Notified Time 1215 Sodium 139.0 Potassium Chloride 107.0 Carbon Dioxide Anion Gap BUN Creatinine Est GFR ( Amer) Est GFR (Non-Af Amer) POC Glucose (mg/dL) 116 H Random Glucose Calcium Total Bilirubin AST ALT Alkaline Phosphatase NT-Pro-B Natriuret Pep Total Protein Albumin Globulin Albumin/Globulin Ratio Lipase Arterial Blood Potassium 2.5 L* Urine Color Urine Clarity Urine pH Ur Specific [place] Urine Protein Urine Glucose (UA) Urine Ketones Urine Blood Urine Nitrate Urine Bilirubin Urine Urobilinogen Ur Leukocyte Esterase Urine RBC (Auto) Ur Squamous Epith Cells Blood Type Antibody Screen 10/05/18 10/05/18 10/05/18 12:26 21:13 21:41 WBC 6.9 D RBC 3.27 L Hgb 6.8 L Hct 22.9 L MCV 70.1 L MCH 20.9 L MCHC 29.9 L RDW 19.6 H Plt Count 202 MPV 10.0 Neut % (Auto) Lymph % (Auto) [place] % (Auto) Eos % (Auto) Baso % (Auto) Neut # (Auto) Lymph # (Auto) [place] # (Auto) Eos # (Auto) Baso # (Auto) PT INR APTT Puncture Site pCO2 pO2 HCO3 ABG pH ABG Total CO2 ABG O2 Saturation ABG Base Excess Nav Test ABG Potassium Glucose Lactate Crit Value Called To Crit Value Called By Crit Value Read Back Blood Gas Notified Time Sodium Potassium Chloride Carbon Dioxide Anion Gap BUN Creatinine Est GFR ( Amer) Est GFR (Non-Af Amer) POC Glucose (mg/dL) 175 H Random Glucose Calcium Total Bilirubin AST ALT Alkaline Phosphatase NT-Pro-B Natriuret Pep Total Protein Albumin Globulin Albumin/Globulin Ratio Lipase Arterial Blood Potassium Urine Color Urine Clarity Urine pH Ur Specific [place] Urine Protein Urine Glucose (UA) Urine Ketones Urine Blood Urine Nitrate Urine Bilirubin Urine Urobilinogen Ur Leukocyte Esterase Urine RBC (Auto) Ur Squamous Epith Cells Blood Type O POSITIVE Antibody Screen Negative
[2018-10-05] MEDS: (Novolog) Insulin Aspart, Recombinant 100 u/ml 10 ml vial SC SCH (22:39)
[2018-10-06] MEDS: (Novolog) Insulin Aspart, Recombinant 100 u/ml 10 ml vial SC SCH ×4 (08:02→22:21)
[2018-10-06] MEDS: Ciprofloxacin 200mg/100ml D5W 100 ML IVPB SCH ×2 (08:06→21:00)
[2018-10-06] MEDS: Potassium Chloride 20 mEq ER Tab PO SCH (10:27)
[2018-10-06 11:45] LABS: MONO # 0.7 K/uL (0.0-0.8); RED CELL DISTRIBUTION WIDTH 21.5 % (11.5-14.5)
[2018-10-06 11:51] LABS: BASO % 0.5 % (0.0-2.0); EOS # 0.1 K/uL (0.0-0.7); EOS % 0.9 % (0.0-4.0); LYMPH % 16.4 % (20.0-40.0); MEAN CORPUSCULAR HEMOGLOBIN 23.7 pg (27.0-31.0); MEAN CORPUSCULAR HGB CONC 31.7 g/dL (33.0-37.0); MEAN PLATELET VOLUME 10.1 fL (7.2-11.7); MONO % 11.5 % (0.0-10.0); NEUT # 4.5 K/uL (1.8-7.0); NEUT % 70.7 % (50.0-75.0); RBC 3.96 Mil/uL (3.80-5.20); WHITE BLOOD COUNT 6.3 K/uL (4.8-10.8)
[2018-10-06 11:54] LABS: HEMOGLOBIN 9.4 g/dL (11.0-16.0)
[2018-10-06 11:56] LABS: MEAN CELL VOLUME 75.3 fL (81.0-99.0)
[2018-10-06 11:59] LABS: ALB/GLOB RATIO 1.2 (1.0-2.1); ALBUMIN 3.2 g/dL (3.5-5.0); AST/SGOT 37 U/L (14-36); BLOOD UREA NITROGEN 6 mg/dL (7-17); GFR NON-AFRICAN AMERICAN > 60
[2018-10-06 12:17] LABS: ALT/SGPT 19 U/L (9-52)
--- NOTE | 2018-10-06 17:25 | CT ---
CT abdomen and pelvis HISTORY: Hematuria. COMPARISON: 04/25/2016 TECHNIQUE: Multiple contiguous axial images were performed through the abdomen and pelvis without the use of intravenous contrast. Subsequently, sagittal and coronal reformatted images were obtained. This CT exam was performed using one or more of the following dose reduction techniques: Automated exposure control, adjustment of the mA and/or kV according to patient size, and/or use of iterative reconstruction technique. Findings: Lung bases are clear. Coronary calcifications. Punctate hypoattenuated foci within the medial right hepatic lobe on series 3, image 29 measuring 4 millimeters, indeterminate. Liver is otherwise grossly preserved. Somewhat contracted gallbladder. Spleen is preserved. Mild nodularity of the adrenal glands. Fatty atrophy the pancreas. Mild stranding within the fat at the level of the pancreatic head, nonspecific. Diffuse anasarca within the subcutaneous circumferential soft tissues. Distended stomach with food substance. Small fat containing midline umbilical hernia. Upper abdominal bowel is otherwise grossly preserved. Right kidney: No gross calculi or hydronephrosis. Left Kidney: 9 millimeter hypodense lesion in the midpole of the left Kidney, too small to adequately characterize. Distended urinary bladder. Large amount of increased attenuation foci within the bladder superiorly measuring up to 8.1 x 6.5 centimeters and inferiorly measuring up to 6.3 x 6.3 centimeters suggestive for large bladder clots. Correlation with cystoscopy may be helpful to exclude underlying mass lesion. Heterogeneous uterus. Fecal retention in the colon. Colonic diverticulosis. Appendix appears partially imaged, within normal limits. Atherosclerotic calcification and plaque within the aorta and iliac vessels. Few shotty para-aortic and inguinal lymph nodes. Few shotty mesenteric lymph nodes. Degenerative changes in the spine. Sclerosis of the bilateral SI joints. Levoscoliotic curvature of the lumbar spine. Subchondral cyst formation seen within the left pubic bone near the SI joint. Subchondral cyst formation seen within the lateral aspect of the left femoral head neck junction. Impression: Distended urinary bladder. Large amount of increased attenuation foci within the bladder superiorly measuring up to 8.1 x 6.5 centimeters and inferiorly measuring up to 6.3 x 6.3 centimeters suggestive for large bladder clots. Correlation with cystoscopy may be helpful to exclude underlying mass lesion. Additional findings as above.
--- NOTE | 2018-10-06 20:58 | CP.PCM.PN ---
Subjective - Date & Time of Evaluation Date of Evaluation: 10/06/18 Time of Evaluation: 19:43 - Subjective Subjective: Patient is sitting up comfortably not in any distress. Patient received a blood transfusion. We will monitor the hemoglobin. Awaiting for urology evaluation and management. Patient still continues to have a bleeding in the urine. We will monitor the hemoglobin and will follow the patient. Objective - Vital Signs/Intake and Output Vital Signs (last 24 hours): Temp Pulse Resp BP Pulse Ox 98.1 F 85 20 102/57 L 100 10/06/18 15:35 10/06/18 15:35 10/06/18 15:35 10/06/18 15:35 10/06/18 15:35 Intake and Output: 10/06/18 10/07/18 18:59 06:59 Intake Total 990 Balance 990 - Medications Medications: Current Medications Dextrose (Dextrose 50% Inj) 0 ml IV STAT PRN; Protocol PRN Reason: Hypoglycemia Protocol Dextrose (Glutose 15) 0 gm PO ONCE PRN; Protocol PRN Reason: Hypoglycemia Protocol Glucagon (Glucagen Diagnostic Kit) 0 mg IM STAT PRN; Protocol PRN Reason: Hypoglycemia Protocol Dextrose (Dextrose 5% In Water 1000 Ml) 1,000 mls @ 0 mls/hr IV .Q0M PRN; Protocol PRN Reason: Hypoglycemia Protocol Ciprofloxacin (Cipro 200mg/100ml D5w) 100 mls @ 67 mls/hr IVPB Q12H JEANMARIE; Protocol Last Admin: 10/06/18 08:06 Dose: 67 mls/hr Insulin Aspart (Novolog) 0 unit SC ACHS JEANMARIE; Protocol Last Admin: 10/06/18 17:15 Dose: Not Given Pantoprazole Sodium (Protonix Inj) 40 mg IVP DAILY JEANMARIE Last Admin: 10/06/18 10:27 Dose: 40 mg Potassium Chloride (K-Dur 20 Meq Er Tab) 20 meq PO DAILY JEANMARIE Last Admin: 10/06/18 10:27 Dose: 20 meq Rosuvastatin Calcium (Crestor) 20 mg PO HS JEANMARIE Last Admin: 10/05/18 23:00 Dose: 20 mg - Labs Labs: 10/06/18 11:15 10/06/18 11:15 PT 12.2 SECONDS (9.7-12.2) 10/05/18 12:26 INR 1.1 10/05/18 12:26 APTT 32 SECONDS (21-34) 10/05/18 12:26
[2018-10-07 05:11] LABS: URINE CLARITY Turbid (Clear); URINE COLOR RED (YELLOW)
[2018-10-07 05:12] LABS: URINE BILIRUBIN LARGE (NEGATIVE); URINE BLOOD LARGE (NEGATIVE); URINE GLUCOSE (UA) 100 mg/dL (Normal); URINE PROTEIN > 300 mg/dL (NEGATIVE)
[2018-10-07 05:13] LABS: URINE LEUKOCYTE ESTERASE MODERATE Leu/uL (Negative)
[2018-10-07 07:34] LABS: BASO % 0.7 % (0.0-2.0); EOS # 0.1 K/uL (0.0-0.7); EOS % 1.7 % (0.0-4.0); HEMOGLOBIN 8.3 g/dL (11.0-16.0); LYMPH # 0.7 K/uL (1.0-4.3); LYMPH % 13.8 % (20.0-40.0); MEAN CELL VOLUME 74.6 fL (81.0-99.0); MEAN CORPUSCULAR HEMOGLOBIN 23.6 pg (27.0-31.0); MEAN CORPUSCULAR HGB CONC 31.6 g/dL (33.0-37.0); MONO # 0.5 K/uL (0.0-0.8); MONO % 10.6 % (0.0-10.0); NEUT # 3.7 K/uL (1.8-7.0); NEUT % 73.2 % (50.0-75.0); RBC 3.51 Mil/uL (3.80-5.20); RED CELL DISTRIBUTION WIDTH 21.1 % (11.5-14.5)
[2018-10-07] MEDS: (Novolog) Insulin Aspart, Recombinant 100 u/ml 10 ml vial SC SCH ×4 (07:36→21:57)
[2018-10-07 08:01] LABS: ALB/GLOB RATIO 1.1 (1.0-2.1); ALBUMIN 2.6 g/dL (3.5-5.0); ALT/SGPT 12 U/L (9-52); AST/SGOT 15 U/L (14-36); BLOOD UREA NITROGEN 10 mg/dL (7-17); CALCIUM 8.5 mg/dl (8.6-10.4); GFR NON-AFRICAN AMERICAN > 60
[2018-10-07] MEDS: Ciprofloxacin 200mg/100ml D5W 100 ML IVPB SCH ×2 (08:12→19:57)
[2018-10-07] MEDS: Potassium Chloride 20 mEq ER Tab PO SCH (09:39)
--- NOTE | 2018-10-07 16:09 | US ---
Renal ultrasound HISTORY: Hematuria. COMPARISON: 10/06/2018 Technique: Real-time sonography was performed through the kidneys. Findings: Right kidney: 10.3 x 5.1 x 4.7 centimeters. Mild increased echogenicity of the renal parenchymal cortex suggestive for medical renal disease. Punctate echogenic foci noted within the right kidney suggestive for a nonobstructive calculus. No hydronephrosis. Visualized aorta is grossly preserved. Left Kidney: 11.4 x 4.8 x 4.2 centimeters. Mild increased echogenicity of the renal parenchymal cortex suggestive for medical renal disease. Midpole hypoechoic cyst measuring 1.3 x 0.9 x 1.4 centimeters. Additional midpole hypoechoic cyst measuring 3 x 4 x 6 millimeters. No calculi or hydronephrosis. Large 9.1 x 7.8 x 9.0 centimeter echogenic mass seen within the urinary bladder with associated increased vascularity. This is of uncertain clinical etiology and may represent a bladder neoplasm versus large hemorrhagic clot versus additional etiology. Correlation with cystoscopy would be helpful for further evaluation if indicated. Impression: 1. Large 9.1 x 7.8 x 9.0 centimeter echogenic mass seen within the urinary bladder with associated increased vascularity. This is of uncertain clinical etiology and may represent a bladder neoplasm versus large hemorrhagic clot versus additional etiology. Correlation with cystoscopy would be helpful for further evaluation if indicated. 2. Increased echogenicity of the bilateral renal parenchymal cortices suggestive for medical renal disease. Clinical correlation. 3. Punctate echogenic foci in the midpole of the right kidney suggestive for nonobstructive calculus. 4. Left renal cysts.
--- NOTE | 2018-10-07 21:44 | CP.PCM.PN ---
Subjective - Date & Time of Evaluation Date of Evaluation: 10/07/18 Time of Evaluation: 21:44 - Subjective Subjective: pt is going for cysto tomorrow medically stable Spoke to the urologist. Patient will be getting the cystoscopy possibly tomorrow. Clinically stable otherwise. Monitor the H&H and will follow the patient Objective - Vital Signs/Intake and Output Vital Signs (last 24 hours): Temp Pulse Resp BP Pulse Ox 98.4 F 80 20 120/57 L 100 10/07/18 15:25 10/07/18 15:25 10/07/18 15:25 10/07/18 15:25 10/07/18 15:25 Intake and Output: 10/07/18 10/08/18 18:59 06:59 Intake Total 960 Output Total 1125 Balance -165 - Medications Medications: Current Medications Dextrose (Dextrose 50% Inj) 0 ml IV STAT PRN; Protocol PRN Reason: Hypoglycemia Protocol Dextrose (Glutose 15) 0 gm PO ONCE PRN; Protocol PRN Reason: Hypoglycemia Protocol Glucagon (Glucagen Diagnostic Kit) 0 mg IM STAT PRN; Protocol PRN Reason: Hypoglycemia Protocol Dextrose (Dextrose 5% In Water 1000 Ml) 1,000 mls @ 0 mls/hr IV .Q0M PRN; Protocol PRN Reason: Hypoglycemia Protocol Ciprofloxacin (Cipro 200mg/100ml D5w) 100 mls @ 67 mls/hr IVPB Q12H JEANMARIE; Protocol Last Admin: 10/07/18 19:57 Dose: 67 mls/hr Insulin Aspart (Novolog) 0 unit SC ACHS JEANMARIE; Protocol Last Admin: 10/07/18 17:30 Dose: Not Given Pantoprazole Sodium (Protonix Inj) 40 mg IVP DAILY JEANMARIE Last Admin: 10/07/18 09:11 Dose: 40 mg Potassium Chloride (K-Dur 20 Meq Er Tab) 20 meq PO DAILY JEANMARIE Last Admin: 10/07/18 09:39 Dose: 20 meq Rosuvastatin Calcium (Crestor) 20 mg PO HS JEANMARIE Last Admin: 10/06/18 22:21 Dose: 20 mg - Labs Labs: 10/07/18 07:28 10/07/18 07:28 PT 12.2 SECONDS (9.7-12.2) 10/05/18 12:26 INR 1.1 10/05/18 12:26 APTT 32 SECONDS (21-34) 10/05/18 12:26
--- NOTE | 2018-10-07 22:35 | CP.PCM.CON ---
History of Present Illness - History of Present Illness History of Present Illness: cc: hematuria Past Patient History - Infectious Disease Hx of Infectious Diseases: None - Past Medical History & Family History Past Medical History?: Yes - Past Social History Smoking Status: Never Smoked - CARDIAC Hx Atrial Fibrillation: Yes Hx Congestive Heart Failure: Yes Hx Hypercholesterolemia: Yes Hx Hypertension: Yes - PULMONARY Hx Respiratory Disorders: No - NEUROLOGICAL Hx Neurological Disorder: Yes Hx Dizziness: Yes - HEENT Hx HEENT Problems: No - RENAL Hx Chronic Kidney Disease: No - ENDOCRINE/METABOLIC Hx Endocrine Disorders: Yes Hx Diabetes Mellitus Type 2: Yes - HEMATOLOGICAL/ONCOLOGICAL Hx Anemia: Yes - INTEGUMENTARY Hx Dermatological Problems: No - MUSCULOSKELETAL/RHEUMATOLOGICAL Hx Falls: No - GASTROINTESTINAL Hx Diverticulitis: Yes (Diverticulosis) Hx Gastritis: Yes - GENITOURINARY/GYNECOLOGICAL Hx Genitourinary Disorders: No - PSYCHIATRIC Hx Substance Use: No - SURGICAL HISTORY Hx Coronary Artery Bypass Graft: Yes (2012) Hx Coronary Stent: Yes - ANESTHESIA Hx Anesthesia: Yes Hx Anesthesia Reactions: No Hx Malignant Hyperthermia: No Meds Allergies/Adverse Reactions: Allergies Allergy/AdvReac Type Severity Reaction Status Date / Time Penicillins Allergy RASH Verified 10/05/18 10:11 - Medications Medications: Current Medications Dextrose (Dextrose 50% Inj) 0 ml IV STAT PRN; Protocol PRN Reason: Hypoglycemia Protocol Dextrose (Glutose 15) 0 gm PO ONCE PRN; Protocol PRN Reason: Hypoglycemia Protocol Glucagon (Glucagen Diagnostic Kit) 0 mg IM STAT PRN; Protocol PRN Reason: Hypoglycemia Protocol Dextrose (Dextrose 5% In Water 1000 Ml) 1,000 mls @ 0 mls/hr IV .Q0M PRN; Protocol PRN Reason: Hypoglycemia Protocol Ciprofloxacin (Cipro 200mg/100ml D5w) 100 mls @ 67 mls/hr IVPB Q12H JEANMARIE; Protocol Last Admin: 10/07/18 19:57 Dose: 67 mls/hr Insulin Aspart (Novolog) 0 unit SC ACHS JEANMARIE; Protocol Last Admin: 10/07/18 21:57 Dose: Not Given Pantoprazole Sodium (Protonix Inj) 40 mg IVP DAILY JEANMARIE Last Admin: 10/07/18 09:11 Dose: 40 mg Potassium Chloride (K-Dur 20 Meq Er Tab) 20 meq PO DAILY JEANMARIE Last Admin: 10/07/18 09:39 Dose: 20 meq Rosuvastatin Calcium (Crestor) 20 mg PO HS JEANMARIE Last Admin: 10/07/18 21:56 Dose: 20 mg Results - Vital Signs Recent Vital Signs: Last Vital Signs Temp 98.4 F 10/07/18 15:25 Pulse 80 10/07/18 15:25 Resp 20 10/07/18 15:25 BP 120/57 L 10/07/18 15:25 Pulse Ox 100 10/07/18 15:25 - Labs Result Diagrams: 10/07/18 07:28 10/07/18 07:28 Labs: Laboratory Results - last 24 hr 10/05/18 10/07/18 10/07/18 12:58 04:33 07:28 WBC 5.0 RBC 3.51 L Hgb 8.3 L Hct 26.2 L MCV 74.6 L MCH 23.6 L MCHC 31.6 L RDW 21.1 H Plt Count 148 MPV 10.0 Neut % (Auto) 73.2 Lymph % (Auto) 13.8 L [place] % (Auto) 10.6 H Eos % (Auto) 1.7 Baso % (Auto) 0.7 Neut # (Auto) 3.7 Lymph # (Auto) 0.7 L [place] # (Auto) 0.5 Eos # (Auto) 0.1 Baso # (Auto) 0.0 Sodium Potassium Chloride Carbon Dioxide Anion Gap BUN Creatinine Est GFR ( Amer) Est GFR (Non-Af Amer) Random Glucose Calcium Total Bilirubin AST ALT Alkaline Phosphatase Total Protein Albumin Globulin Albumin/Globulin Ratio Urine Color Red Urine Clarity Turbid Urine pH 7.0 Ur Specific [place] 1.015 Urine Protein > 300 Urine Glucose (UA) 100 Urine Ketones 15 Urine Blood Large Urine Nitrate Positive H Urine Bilirubin Large Urine Urobilinogen 4.0 H Ur Leukocyte Esterase Moderate Urine WBC (Auto) 506 H Urine RBC (Auto) 79343 H Stool Occult Blood Negative 10/07/18 07:28 WBC RBC Hgb Hct MCV MCH MCHC RDW Plt Count MPV Neut % (Auto) Lymph % (Auto) [place] % (Auto) Eos % (Auto) Baso % (Auto) Neut # (Auto) Lymph # (Auto) [place] # (Auto) Eos # (Auto) Baso # (Auto) Sodium 139 Potassium 3.7 Chloride 108 H Carbon Dioxide 28 Anion Gap 6 L BUN 10 Creatinine 0.8 Est GFR ( Amer) > 60 Est GFR (Non-Af Amer) > 60 Random Glucose 106 H Calcium 8.5 L Total Bilirubin 0.2 AST 15 ALT 12 Alkaline Phosphatase 44 Total Protein 4.9 L Albumin 2.6 L Globulin 2.3 Albumin/Globulin Ratio 1.1 Urine Color Urine Clarity Urine pH Ur Specific [place] Urine Protein Urine Glucose (UA) Urine Ketones Urine Blood Urine Nitrate Urine Bilirubin Urine Urobilinogen Ur Leukocyte Esterase Urine WBC (Auto) Urine RBC (Auto) Stool Occult Blood Assessment & Plan - Assessment and Plan (Free Text) Assessment: IMP: hematuria incomplete bladder emptying Possible bladder mass full note tbd YS - Date & Time Date: 10/07/18 Time: 12:50
[2018-10-08 07:45] LABS: HEMOGLOBIN 8.4 g/dL (11.0-16.0); MEAN CELL VOLUME 74.3 fL (81.0-99.0); MEAN CORPUSCULAR HEMOGLOBIN 23.7 pg (27.0-31.0); MEAN CORPUSCULAR HGB CONC 31.9 g/dL (33.0-37.0); MEAN PLATELET VOLUME 10.2 fL (7.2-11.7); RBC 3.53 Mil/uL (3.80-5.20); RED CELL DISTRIBUTION WIDTH 21.7 % (11.5-14.5); WHITE BLOOD COUNT 5.3 K/uL (4.8-10.8)
[2018-10-08 07:50] LABS: INR 1.1; PROTHROMBIN TIME 11.8 SECONDS (9.7-12.2)
[2018-10-08 07:57] LABS: ALB/GLOB RATIO 1.2 (1.0-2.1); ALBUMIN 2.8 g/dL (3.5-5.0); ALT/SGPT 9 U/L (9-52); AST/SGOT 15 U/L (14-36); BLOOD UREA NITROGEN 10 mg/dL (7-17); CALCIUM 8.8 mg/dl (8.6-10.4); GFR NON-AFRICAN AMERICAN > 60
[2018-10-08] MEDS: (Novolog) Insulin Aspart, Recombinant 100 u/ml 10 ml vial SC SCH ×4 (08:06→22:26)
[2018-10-08] MEDS: Ciprofloxacin 200mg/100ml D5W 100 ML IVPB SCH ×2 (08:19→20:18)
[2018-10-08 08:51] LABS: EOS # 0.1 K/uL (0.0-0.7); MONO # 0.5 K/uL (0.0-0.8); NEUT # 3.7 K/uL (1.8-7.0)
[2018-10-08] MEDS ORDERED: Propofol 10 mg/ml Inj (20 ML) ONE (09:56)
[2018-10-08] MEDS ORDERED: Iohexol 240 (50 ml) ONE (10:03)
[2018-10-08 10:57] LABS: BASO % 0.8 % (0.0-2.0); EOS # 0.1 K/uL (0.0-0.7); HEMOGLOBIN 7.6 g/dL (11.0-16.0); MEAN CELL VOLUME 75.1 fL (81.0-99.0); MEAN CORPUSCULAR HEMOGLOBIN 22.9 pg (27.0-31.0); MEAN CORPUSCULAR HGB CONC 30.5 g/dL (33.0-37.0); MEAN PLATELET VOLUME 10.1 fL (7.2-11.7); MONO # 0.6 K/uL (0.0-0.8); MONO % 10.8 % (0.0-10.0); NEUT # 3.5 K/uL (1.8-7.0); NEUT % 67.4 % (50.0-75.0); RBC 3.31 Mil/uL (3.80-5.20); RED CELL DISTRIBUTION WIDTH 21.7 % (11.5-14.5); WHITE BLOOD COUNT 5.2 K/uL (4.8-10.8)
--- NOTE | 2018-10-08 11:30 | PCM.SURG1 ---
Surgeon's Initial Post Op Note - Surgeon's Notes Surgeon: Kathie Arrieta Pole Lift Operator: none Type of Anesthesia: General LMA Pre-Operative Diagnosis: Hematuria Operative Findings: Bladder cancer. Clot retention Post-Operative Diagnosis: same Operation Performed: cysto. evacuation of bladder clots. TUR-BT. Fulgiration of Bladder tumor Bleeding Specimen/Specimens Removed: bladder tumor Estimated Blood Loss: EBL {In ML}: 60 Blood Products Given: N/A Post-Op Condition: Good Date of Surgery/Procedure: 10/08/18 Time of Surgery/Procedure: 11:00
--- NOTE | 2018-10-08 13:17 | CP.PCM.PN ---
Subjective - Date & Time of Evaluation Date of Evaluation: 10/08/18 Time of Evaluation: 13:16 - Subjective Subjective: pt had cysto today bladder tumor positive will watch for bleeding urology management appreciated Objective - Vital Signs/Intake and Output Vital Signs (last 24 hours): Temp Pulse Resp BP Pulse Ox 98 F 86 17 115/61 98 10/08/18 11:45 10/08/18 11:45 10/08/18 11:45 10/08/18 11:45 10/08/18 11:45 Intake and Output: 10/08/18 10/08/18 06:59 18:59 Intake Total 580 700 Output Total 1175 200 Balance -595 500 - Medications Medications: Current Medications Dextrose (Dextrose 50% Inj) 0 ml IV STAT PRN; Protocol PRN Reason: Hypoglycemia Protocol Dextrose (Glutose 15) 0 gm PO ONCE PRN; Protocol PRN Reason: Hypoglycemia Protocol Glucagon (Glucagen Diagnostic Kit) 0 mg IM STAT PRN; Protocol PRN Reason: Hypoglycemia Protocol Dextrose (Dextrose 5% In Water 1000 Ml) 1,000 mls @ 0 mls/hr IV .Q0M PRN; Protocol PRN Reason: Hypoglycemia Protocol Ciprofloxacin (Cipro 200mg/100ml D5w) 100 mls @ 67 mls/hr IVPB Q12H JEANMARIE; Protocol Last Admin: 10/08/18 08:19 Dose: 67 mls/hr Lactated Ringer's (Lactated Ringer's) 1,000 mls @ 100 mls/hr IV .Q10H JEAMNARIE Insulin Aspart (Novolog) 0 unit SC ACHS JEANMARIE; Protocol Last Admin: 10/08/18 08:06 Dose: Not Given Pantoprazole Sodium (Protonix Inj) 40 mg IVP DAILY JEANMARIE Last Admin: 10/07/18 09:11 Dose: 40 mg Potassium Chloride (K-Dur 20 Meq Er Tab) 20 meq PO DAILY JEANMARIE Last Admin: 10/07/18 09:39 Dose: 20 meq Rosuvastatin Calcium (Crestor) 20 mg PO HS JEANMARIE Last Admin: 10/07/18 21:56 Dose: 20 mg - Labs Labs: 10/08/18 10:42 10/08/18 07:27 PT 11.8 SECONDS (9.7-12.2) 10/08/18 07:27 INR 1.1 10/08/18 07:27 APTT 32 SECONDS (21-34) 10/08/18 07:27
[2018-10-08] MEDS: Potassium Chloride 20 mEq ER Tab PO SCH (14:39)
[2018-10-08] MEDS: Lactated Ringer's 1,000 ML IV SCH ×2 (15:00→21:00)
--- NOTE | 2018-10-08 15:28 | RAD ---
Date of service: 2018-10-08 09:44:55 HISTORY: HEMATURIA COMPARISON: None available. TECHNIQUE: 1 view obtained. FINDINGS: BOWEL: Moderately large amount of stool is present within the large bowel consistent with fecal retention/constipation however no evidence to suggest acute mechanical bowel obstruction.. No free air. BONES: Normal. OTHER FINDINGS: No evidence of renal calculi. IMPRESSION: Findings consistent with constipation.. No evidence of obvious renal calculi.
[2018-10-08] MEDS ORDERED: Oxycodone/Acetaminophen 5/325 mg Tab PO PRN (18:43)
[2018-10-08 21:18] LABS: HEMOGLOBIN 7.6 g/dL (11.0-16.0); MEAN CELL VOLUME 73.9 fL (81.0-99.0); MEAN CORPUSCULAR HEMOGLOBIN 23.3 pg (27.0-31.0); MEAN CORPUSCULAR HGB CONC 31.5 g/dL (33.0-37.0); RBC 3.26 Mil/uL (3.80-5.20); RED CELL DISTRIBUTION WIDTH 21.3 % (11.5-14.5)
[2018-10-09] MEDS: Lactated Ringer's 1,000 ML IV SCH ×4 (02:35→20:05)
--- NOTE | 2018-10-09 06:37 | CON ---
DATE: 10/05/2018 UROLOGY CONSULTATION REQUESTED BY: Darren Guardado MD FILLED BY: Kalie Arrieta MD REASON FOR CONSULTATION: Hematuria. HISTORY OF PRESENT ILLNESS: The patient is a 78-year-old female with hematuria. The patient reports several-day history of gross hematuria. There is occasional dysuria. No flank pain. No fever. No nausea or vomiting. The patient has had persistent hematuria for the past several days. The patient voids with good stream. She reports good urinary control. There is no history of urolithiasis. The patient does have history of urinary tract infection. She reports that she had an episode of hematuria in May 2018. At that time, she was treated for urinary tract infection. The patient is in otherwise fair health. The patient has history of cardiac disease. She has history of previous cardiac surgery including two-vessel bypass graft and valve replacement. The patient lives alone. She does not smoke. The patient reports a fair appetite. No nausea or vomiting. No hematemesis. No hematochezia. PHYSICAL EXAMINATION: GENERAL: The patient is a well-developed elderly female. The patient is awake and alert. ABDOMEN: Soft, nondistended. Mild suprapubic tenderness. BACK: No CVA tenderness. LABORATORY DATA: Reviewed. Anemia is noted. CT scan reveals bladder distention as well as bladder mass consistent with tumor or clot. IMPRESSION: Gross hematuria. Possible bladder tumor. Anemia. Coronary artery disease. RECOMMENDATION/PLAN: For cystoscopy. Medical and cardiology evaluation. Transfusions. Further therapy to follow according to the patient's clinical course as well as results of above. Findings discussed with the patient as well and the nursing staff. Kalie Arrieta MD cc: Darren Guardado MD
--- NOTE | 2018-10-09 06:57 | OP ---
PROCEDURE DATE: 10/08/2018 PREOPERATIVE DIAGNOSIS: Hematuria. POSTOPERATIVE DIAGNOSES: Hematuria. Clot retention. Bladder cancer. PROCEDURES: Cystoscopy. Evacuation of bladder clots. Transurethral resection of bladder tumor. Fulguration of bladder tumor. Exam under anesthesia. OPERATING SURGEON: Kalie Arrieta MD. DESCRIPTION OF PROCEDURE: Procedure as follows. The patient was placed in lithotomy position. Genitalia prepped and draped sterilely. Perioperative antibiotics were administered. Anesthesia was administered by the anesthesiologist. A 22-Malagasy cystoscope sheath was introduced with obturator. There was pure fresh blood from the bladder. Only approximately 20 mL of blood drained. Cystoscope was introduced. Procedure was performed under videoendoscopic control. There was no bladder visibility due to clots within the bladder. The clots within the bladder were evacuated with a combination of Jonathan syringe as well as with Microvasive evacuator. Thereafter, the bladder was able to be inspected. There was noted to be active bleeding from a large bladder tumor involving the floor of the bladder widely. The tumor was noted to be a papillary tumor. There were necrotic areas. There was active bleeding. Resection of the tumor was performed. Specimen sent for pathologic examination. The tumor was incompletely resected. Fulguration was performed with rollerball electrode as well. Visibility within the bladder was improved, then irrigation cleared. The resectoscope was removed. A Robles catheter was inserted. Bladder irrigation was light pink. Exam under anesthesia/bimanual examination was performed. There was fullness of the bladder base. There was no fixation noted. The patient was then returned to the supine position. The patient tolerated the procedure without complication. Kalie Arrieta MD cc: Darren Guardado MD
[2018-10-09] MEDS: (Novolog) Insulin Aspart, Recombinant 100 u/ml 10 ml vial SC SCH ×4 (07:33→22:20)
[2018-10-09] MEDS: Ciprofloxacin 200mg/100ml D5W 100 ML IVPB SCH ×2 (08:21→20:00)
[2018-10-09 08:34] LABS: HEMOGLOBIN 7.6 g/dL (11.0-16.0); MEAN CORPUSCULAR HEMOGLOBIN 23.5 pg (27.0-31.0); MEAN CORPUSCULAR HGB CONC 31.3 g/dL (33.0-37.0); MEAN PLATELET VOLUME 10.2 fL (7.2-11.7); RBC 3.22 Mil/uL (3.80-5.20); RED CELL DISTRIBUTION WIDTH 21.7 % (11.5-14.5); WHITE BLOOD COUNT 5.2 K/uL (4.8-10.8)
[2018-10-09] MEDS: Potassium Chloride 20 mEq ER Tab PO SCH (09:49)
[2018-10-09] MEDS: Ferric Sodium Gluconat Complex 62.5 mg/5 ml Vial IVPB SCH (10:03)
[2018-10-09 10:26] LABS: LYMPH # 0.8 K/uL (1.0-4.3); MONO # 0.4 K/uL (0.0-0.8)
[2018-10-09 11:56] LABS: BLOOD UREA NITROGEN 7 mg/dL (7-17); CALCIUM 8.6 mg/dl (8.6-10.4); GFR NON-AFRICAN AMERICAN > 60
--- NOTE | 2018-10-09 15:28 | CARD ---
APPROVED REPORT Date of service: 10/05/2018 EKG Measurement Heart [id number] <Conclusion> Undetermined rhythm Left axis deviation Right bundle branch block Minimal voltage criteria for LVH, may be normal variant Abnormal ECG
--- NOTE | 2018-10-09 19:45 | CP.PCM.PN ---
Subjective - Date & Time of Evaluation Date of Evaluation: 10/09/18 Time of Evaluation: 19:44 - Subjective Subjective: Patient is currently sitting up comfortably, not in any distress. Yesterday patient underwent a cystoscopy, there was evidence of bladder mass. There was also bleeding noted. The bleeding was contained somewhat. Less bleeding noted, minimal oozing still noted. I spoke to the urologist. Possible re-cystoscopy tomorrow. Will continue the blood transfusion today. Maintain the hemoglobin above 10. From the cardiology point of view patient is currently stable. Patient had history of AVR, and 1 coronary artery stent placement. Patient is clinically stable. She is having no active systemic symptoms of chest pain or shortness of breath. We will maintain the hemoglobin. Patient is scheduled to have the wrist cystoscopy tomorrow and a possible removal of the bladder mass. Objective - Vital Signs/Intake and Output Vital Signs (last 24 hours): Temp Pulse Resp BP Pulse Ox 98.5 F 90 20 131/75 100 10/09/18 15:15 10/09/18 15:15 10/09/18 15:15 10/09/18 15:15 10/09/18 15:15 Intake and Output: 10/09/18 10/10/18 18:59 06:59 Intake Total 84315 Output Total 79038 Balance 390 - Medications Medications: Current Medications Dextrose (Dextrose 50% Inj) 0 ml IV STAT PRN; Protocol PRN Reason: Hypoglycemia Protocol Dextrose (Glutose 15) 0 gm PO ONCE PRN; Protocol PRN Reason: Hypoglycemia Protocol Ferric Sodium Gluconate Complex (Ferrlecit) 125 mg IVPB DAILY [facility] Stop: 10/17/18 10:01 Last Admin: 10/09/18 10:03 Dose: 125 mg Glucagon (Glucagen Diagnostic Kit) 0 mg IM STAT PRN; Protocol PRN Reason: Hypoglycemia Protocol Ciprofloxacin (Cipro 200mg/100ml D5w) 100 mls @ 67 mls/hr IVPB Q12H JEANMARIE; Protocol Last Admin: 10/09/18 08:21 Dose: 67 mls/hr Lactated Ringer's (Lactated Ringer's) 1,000 mls @ 100 mls/hr IV .Q10H [facility] Last Admin: 10/09/18 17:34 Dose: 100 mls/hr Insulin Aspart (Novolog) 0 unit SC ACHS JEANMARIE; Protocol Last Admin: 10/09/18 17:34 Dose: Not Given Oxycodone/Acetaminophen (Percocet 5/325 Mg Tab) 1 tab PO Q4H PRN PRN Reason: pain Stop: 10/11/18 18:44 Last Admin: 10/08/18 19:00 Dose: 1 tab Pantoprazole Sodium (Protonix Inj) 40 mg IVP DAILY JEANMARIE Last Admin: 10/09/18 09:50 Dose: 40 mg Potassium Chloride (K-Dur 20 Meq Er Tab) 20 meq PO DAILY JEANMARIE Last Admin: 10/09/18 09:49 Dose: 20 meq Rosuvastatin Calcium (Crestor) 20 mg PO HS JEANMARIE Last Admin: 10/08/18 21:50 Dose: 20 mg - Labs Labs: 10/09/18 08:26 10/09/18 11:30 PT 11.8 SECONDS (9.7-12.2) 10/08/18 07:27 INR 1.1 10/08/18 07:27 APTT 32 SECONDS (21-34) 10/08/18 07:27
[2018-10-10 07:49] LABS: INR 1.1; PROTHROMBIN TIME 12.2 SECONDS (9.7-12.2)
[2018-10-10 07:53] LABS: BASO % 0.5 % (0.0-2.0); EOS % 0.8 % (0.0-4.0); HEMOGLOBIN 8.5 g/dL (11.0-16.0); LYMPH # 1.3 K/uL (1.0-4.3); LYMPH % 20.9 % (20.0-40.0); MEAN CELL VOLUME 76.6 fL (81.0-99.0); MEAN CORPUSCULAR HEMOGLOBIN 23.9 pg (27.0-31.0); MEAN CORPUSCULAR HGB CONC 31.2 g/dL (33.0-37.0); MEAN PLATELET VOLUME 9.8 fL (7.2-11.7); MONO # 0.6 K/uL (0.0-0.8); MONO % 10.3 % (0.0-10.0); NEUT # 4.1 K/uL (1.8-7.0); NEUT % 67.5 % (50.0-75.0); NRBC % 0.1 % (0.0-2.0); RBC 3.54 Mil/uL (3.80-5.20); RED CELL DISTRIBUTION WIDTH 21.8 % (11.5-14.5)
[2018-10-10 08:06] LABS: CK-MB 0.27 ng/mL (0.0-3.38)
[2018-10-10 08:09] LABS: ALB/GLOB RATIO 1.2 (1.0-2.1); ALBUMIN 2.6 g/dL (3.5-5.0); ALT/SGPT < 6 U/L (9-52); AST/SGOT 17 U/L (14-36); BLOOD UREA NITROGEN 5 mg/dL (7-17); CALCIUM 8.7 mg/dl (8.6-10.4); GFR NON-AFRICAN AMERICAN > 60
[2018-10-10] MEDS: Ciprofloxacin 200mg/100ml D5W 100 ML IVPB SCH ×2 (08:18→19:02)
[2018-10-10] MEDS: (Novolog) Insulin Aspart, Recombinant 100 u/ml 10 ml vial SC SCH ×4 (08:20→22:00)
[2018-10-10] MEDS: Ferric Sodium Gluconat Complex 62.5 mg/5 ml Vial IVPB SCH (11:00)
[2018-10-10] MEDS: Potassium Chloride 20 mEq ER Tab PO SCH (11:01)
[2018-10-10] MEDS ORDERED: Midazolam 2 MG/2 ML VIAL ONE (13:04)
[2018-10-10] MEDS ORDERED: Propofol 10 mg/ml Inj (20 ML) ONE (13:05)
--- NOTE | 2018-10-10 15:15 | PCM.SURG1 ---
Surgeon's Initial Post Op Note - Surgeon's Notes Surgeon: Kathie Arrieta Water Meter Reader: none Type of Anesthesia: General LMA Pre-Operative Diagnosis: Hematuria. Bladder cancer Operative Findings: Bladder cancer Post-Operative Diagnosis: same Operation Performed: TURBT Specimen/Specimens Removed: Bladder tumor Estimated Blood Loss: EBL {In ML}: 100 Blood Products Given: N/A Post-Op Condition: Good Date of Surgery/Procedure: 10/10/18 Time of Surgery/Procedure: 15:20
[2018-10-10] MEDS ORDERED: HYDROmorphone 0.5 mg/0.5 ml ISec IVP PRN (15:17)
[2018-10-10] MEDS ORDERED: Sodium Chloride 0.9% 500 ML IV ONE (15:17)
[2018-10-10] MEDS: Lactated Ringer's 1,000 ML IV SCH ×2 (16:03→19:01)
[2018-10-10 20:58] LABS: HEMOGLOBIN 10.1 g/dL (11.0-16.0); MEAN CELL VOLUME 77.9 fL (81.0-99.0); MEAN CORPUSCULAR HEMOGLOBIN 24.5 pg (27.0-31.0); MEAN CORPUSCULAR HGB CONC 31.4 g/dL (33.0-37.0); RBC 4.15 Mil/uL (3.80-5.20); RED CELL DISTRIBUTION WIDTH 20.3 % (11.5-14.5); WHITE BLOOD COUNT 8.4 K/uL (4.8-10.8)
[2018-10-10 22:38] LABS: ALBUMIN 2.7 g/dL (3.5-5.0); ALT/SGPT 11 U/L (9-52); AST/SGOT 17 U/L (14-36); BLOOD UREA NITROGEN 5 mg/dL (7-17); CALCIUM 8.8 mg/dl (8.6-10.4); GFR NON-AFRICAN AMERICAN > 60
[2018-10-11 07:37] LABS: HEMOGLOBIN 9.8 g/dL (11.0-16.0); MEAN CELL VOLUME 76.9 fL (81.0-99.0); MEAN CORPUSCULAR HEMOGLOBIN 24.8 pg (27.0-31.0); MEAN CORPUSCULAR HGB CONC 32.3 g/dL (33.0-37.0); MEAN PLATELET VOLUME 9.5 fL (7.2-11.7); RBC 3.96 Mil/uL (3.80-5.20); RED CELL DISTRIBUTION WIDTH 20.7 % (11.5-14.5); WHITE BLOOD COUNT 6.3 K/uL (4.8-10.8)
[2018-10-11] MEDS: (Novolog) Insulin Aspart, Recombinant 100 u/ml 10 ml vial SC SCH ×3 (07:52→17:11)
[2018-10-11 08:00] LABS: BLOOD UREA NITROGEN 6 mg/dL (7-17); CALCIUM 8.9 mg/dl (8.6-10.4); GFR NON-AFRICAN AMERICAN > 60
[2018-10-11] MEDS: Ciprofloxacin 200mg/100ml D5W 100 ML IVPB SCH (08:03)
[2018-10-11] MEDS: Ferric Sodium Gluconat Complex 62.5 mg/5 ml Vial IVPB SCH (10:18)
[2018-10-11] MEDS: Potassium Chloride 20 mEq ER Tab PO SCH (10:19)
[2018-10-11] MEDS: Lactated Ringer's 1,000 ML IV SCH ×2 (12:31→19:05)
--- NOTE | 2018-10-11 13:54 | CARD ---
APPROVED REPORT Date of service: 10/10/2018 EXAM: Two-dimensional and M-mode echocardiogram with Doppler and color Doppler. Other Information Quality : GoodRhythm : INDICATION Dizziness and Vertigo Aortic Valve Disease Atrial Fibrillation Congestive Heart Failure Surgery/Intervention Status/Post Aortic Valve Replacement: CABG: Status/Post Intervention: Stent RISK FACTORS Hypertension Hyperlipidemia Diabetes 2D DIMENSIONS IVSd1.4 (0.7-1.1cm)LVDd3.8 (3.9-5.9cm) PWd1.2 (0.7-1.1cm)LA Szmesg02 (18-58mL) LVDs2.4 (2.5-4.0cm)FS (%) 36.2 % LVEF (%)69.0 (>50%)LVEF (Ordonez's)66.62 % M-Mode DIMENSIONS Left Atrium (MM)3.25 (2.5-4.0cm)IVSd1.52 (0.7-1.1cm) Aortic Root4.34 (2.2-3.7cm)LVDd4.11 (4.0-5.6cm) Aortic Cusp Exc.1.71 (1.5-2.0cm)PWd1.15 (0.7-1.1cm) FS (%) 34 %LVDs2.71 (2.0-3.8cm) LVEF (%)63 (>50%) Aortic Valve AoV Peak Rdzmzewv702.8cm/sAoV VTI56.2cmAO Peak GR.34mmHg AO Mean GR.20mmHg Mitral Valve MV E Ljemlndh614.5cm/sMV A Efbvtpat619.5cm/sE/A ratio0.9 TDI Lateral E' Peak V8.29cm/sMedial E' Peak V5.25cm/sE/Lateral E'14.1 E/Medial E'22.2 Tricuspid Valve TR Peak Imgtxxvs449sp/sTR Peak Gr.35gqUmWZGS43rnWf <Conclusion> Left ventricle: thickness: normal; size: normal; overall ejection fraction: 65%: diastolic filling pressures: elevated Mitral valve: annulus: MAC: leaflets: normal: excursion: normal; no significant trans-mitral gradient: mild incompetence: left atrium: dilated Aortic valve: bioprosthesis excursion: normal; 32/20mmHg peak/main trans-aortic gradient: No significant incompetence: aortic root: dilated; repeat doppler measurements if valve area is a concern Right sided Structures: Pulmonary valve: normal; no significant incompetence; Tricuspid valve: normal; mild incompetence: Intra-cardiac hemodynamics: pulmonary systolic pressures: 50mmHg; central venous pressures: normal No pericardial effusion
--- NOTE | 2018-10-11 22:17 | CP.PCM.PN ---
Subjective - Date & Time of Evaluation Date of Evaluation: 10/10/18 Time of Evaluation: 22:16 - Subjective Subjective: Patient is morning had a revision of the cystoscopy. Also patient received blood transfusion second unit. Successfully patient underwent a second cystoscopy, and also transurethral resection of the bladder tumor. Patient tolerated the procedure well. But complaining of increasing abdominal pain, she is also feeling nausea. Headache noted. Vital signs are stable. Chest good air entry, bilaterally regular heart sounds, nontender abdomen. Suprapubic minimal tenderness noted. Robles catheter present. Assessment and recommendation: 78-year-old female with a history of diabetes, history of GI bleed, and also history of aortic stenosis, status post valve replacement, and also coronary artery bypass grafting x1. Residual stenosis noted. Now admitted with hematuria, bladder tumor, status post resection, status post blood transfusion. We will continue to monitor. We will follow the patient Objective - Vital Signs/Intake and Output Vital Signs (last 24 hours): Temp Pulse Resp BP Pulse Ox 98.2 F 93 H 20 97/57 L 100 10/11/18 16:00 10/11/18 16:45 10/11/18 16:00 10/11/18 16:00 10/11/18 16:00 Intake and Output: 10/11/18 10/12/18 18:59 06:59 Intake Total 600 Output Total 450 Balance 150 - Medications Medications: Current Medications Ferric Sodium Gluconate Complex (Ferrlecit) 125 mg IVPB DAILY [facility] Stop: 10/17/18 10:01 Last Admin: 10/11/18 10:18 Dose: 125 mg Insulin Aspart (Novolog) 0 unit SC [facility]; Protocol Last Admin: 10/11/18 17:11 Dose: Not Given Pantoprazole Sodium (Protonix Inj) 40 mg IVP DAILY [facility] Last Admin: 10/11/18 10:19 Dose: 40 mg Potassium Chloride (K-Dur 20 Meq Er Tab) 20 meq PO DAILY [facility] Last Admin: 10/11/18 10:19 Dose: 20 meq Rosuvastatin Calcium (Crestor) 20 mg PO HS [facility] Last Admin: 10/11/18 21:46 Dose: 20 mg - Labs Labs: 10/11/18 07:27 10/11/18 07:27 PT 12.2 SECONDS (9.7-12.2) 04/17/19 07:25 INR 1.1 10/10/18 07:25 APTT 31 SECONDS (21-34) 10/10/18 07:25
--- NOTE | 2018-10-11 22:18 | CP.PCM.PN ---
Subjective - Date & Time of Evaluation Date of Evaluation: 10/11/18 Time of Evaluation: 22:17 - Subjective Subjective: POD #1 Patient is morning had a revision of the cystoscopy. Also patient received blood transfusion second unit. Successfully patient underwent a second cystoscopy, and also transurethral resection of the bladder tumor. Patient tolerated the procedure well. Vital signs are stable. Chest good air entry, bilaterally regular heart sounds, nontender abdomen. Suprapubic minimal tenderness noted. Robles catheter present. Patient for blood test results today stable. She is also feeling well at this time. No headache no visual symptoms noted. Assessment and recommendation: 78-year-old female with a history of diabetes, history of GI bleed, and also history of aortic stenosis, status post valve replacement, and also coronary artery bypass grafting x1. Residual stenosis noted. Now admitted with hematuria, bladder tumor, status post resection, status post blood transfusion. We will continue to monitor. We will follow the patient Objective - Vital Signs/Intake and Output Vital Signs (last 24 hours): Temp Pulse Resp BP Pulse Ox 98.2 F 93 H 20 97/57 L 100 10/11/18 16:00 10/11/18 16:45 10/11/18 16:00 10/11/18 16:00 10/11/18 16:00 Intake and Output: 10/11/18 10/12/18 18:59 06:59 Intake Total 600 Output Total 450 Balance 150 - Medications Medications: Current Medications Ferric Sodium Gluconate Complex (Ferrlecit) 125 mg IVPB DAILY [facility] Stop: 10/17/18 10:01 Last Admin: 10/11/18 10:18 Dose: 125 mg Insulin Aspart (Novolog) 0 unit SC [facility]; Protocol Last Admin: 10/11/18 17:11 Dose: Not Given Metoprolol Tartrate (Lopressor) 12.5 mg PO BID [facility] Pantoprazole Sodium (Protonix Inj) 40 mg IVP DAILY [facility] Last Admin: 10/11/18 10:19 Dose: 40 mg Potassium Chloride (K-Dur 20 Meq Er Tab) 20 meq PO DAILY [facility] Last Admin: 10/11/18 10:19 Dose: 20 meq Rosuvastatin Calcium (Crestor) 20 mg PO HS [facility] Last Admin: 10/11/18 21:46 Dose: 20 mg - Labs Labs: 10/11/18 07:27 10/11/18 07:27 PT 12.2 SECONDS (9.7-12.2) 10/10/18 07:25 INR 1.1 10/10/18 07:25 APTT 31 SECONDS (21-34) 10/10/18 07:25
[2018-10-12] MEDS: (Novolog) Insulin Aspart, Recombinant 100 u/ml 10 ml vial SC SCH ×4 (07:40→21:17)
[2018-10-12 08:24] LABS: BASO % 0.4 % (0.0-2.0); EOS # 0.1 K/uL (0.0-0.7); EOS % 0.9 % (0.0-4.0); HEMOGLOBIN 9.6 g/dL (11.0-16.0); LYMPH # 1.4 K/uL (1.0-4.3); LYMPH % 22.8 % (20.0-40.0); MEAN CELL VOLUME 77.5 fL (81.0-99.0); MEAN CORPUSCULAR HGB CONC 32.3 g/dL (33.0-37.0); MEAN PLATELET VOLUME 9.8 fL (7.2-11.7); MONO # 0.7 K/uL (0.0-0.8); MONO % 11.8 % (0.0-10.0); NEUT # 3.9 K/uL (1.8-7.0); NEUT % 64.1 % (50.0-75.0); NRBC % 0.2 % (0.0-2.0); RBC 3.85 Mil/uL (3.80-5.20); RED CELL DISTRIBUTION WIDTH 21.5 % (11.5-14.5); WHITE BLOOD COUNT 6.1 K/uL (4.8-10.8)
[2018-10-12 08:34] LABS: BLOOD UREA NITROGEN 6 mg/dL (7-17); GFR NON-AFRICAN AMERICAN > 60
[2018-10-12 08:35] LABS: ALB/GLOB RATIO 1.1 (1.0-2.1); ALBUMIN 2.6 g/dL (3.5-5.0); ALT/SGPT 11 U/L (9-52); AST/SGOT 20 U/L (14-36); CALCIUM 8.3 mg/dl (8.6-10.4)
[2018-10-12] MEDS: Ferric Sodium Gluconat Complex 62.5 mg/5 ml Vial IVPB SCH (10:39)
[2018-10-12] MEDS: Potassium Chloride 20 mEq ER Tab PO SCH (10:40)
--- NOTE | 2018-10-12 21:44 | CP.PCM.PN ---
Subjective - Date & Time of Evaluation Date of Evaluation: 10/12/18 Time of Evaluation: 21:43 - Subjective Subjective: Patient is now feeling well, comfortable, not in any distress. Vital signs are stable Today hemoglobin is also stable. The urine is much clear. Spoke to the urologist. We will possibly remove the Robles catheter on Monday,. Continue the current supportive treatment Objective - Vital Signs/Intake and Output Vital Signs (last 24 hours): Temp Pulse Resp BP Pulse Ox 98.5 F 84 22 107/65 98 10/12/18 16:00 10/12/18 17:30 10/12/18 16:00 10/12/18 16:00 10/12/18 16:00 Intake and Output: 10/12/18 10/13/18 18:59 06:59 Intake Total 580 Output Total 800 Balance -220 - Medications Medications: Current Medications Ferric Sodium Gluconate Complex (Ferrlecit) 125 mg IVPB DAILY [facility] Stop: 10/17/18 10:01 Last Admin: 10/12/18 10:39 Dose: 125 mg Insulin Aspart (Novolog) 0 unit SC [facility]; Protocol Last Admin: 10/12/18 21:17 Dose: Not Given Metoprolol Tartrate (Lopressor) 12.5 mg PO BID [facility] Last Admin: 10/12/18 17:16 Dose: 12.5 mg Pantoprazole Sodium (Protonix Inj) 40 mg IVP DAILY [facility] Last Admin: 10/12/18 10:40 Dose: 40 mg Potassium Chloride (K-Dur 20 Meq Er Tab) 20 meq PO DAILY [facility] Last Admin: 10/12/18 10:40 Dose: 20 meq Rosuvastatin Calcium (Crestor) 20 mg PO HS [facility] Last Admin: 10/12/18 21:19 Dose: 20 mg - Labs Labs: 10/12/18 08:13 10/12/18 08:13 PT 12.2 SECONDS (9.7-12.2) 10/10/18 07:25 INR 1.1 10/10/18 07:25 APTT 31 SECONDS (21-34) 10/10/18 07:25
--- NOTE | 2018-10-13 01:43 | OP ---
PROCEDURE DATE: 10/10/2018 PREOPERATIVE DIAGNOSES: Hematuria. Bladder cancer. POSTOPERATIVE DIAGNOSES: Hematuria. Bladder cancer. OPERATING SURGEON: Kalie Arrieta MD PROCEDURE: Cystoscopy. Evacuation of bladder clots. Transurethral resection of bladder tumor. Exam under anesthesia. Bimanual examination. DESCRIPTION OF PROCEDURE: Procedure as follows: The patient was placed in the lithotomy position. General anesthesia was provided by the anesthesiologist. The genitalia were prepped and draped sterilely. Procedure was performed under videoendoscopic control. A 26-Albanian continuous flow resectoscope sheath was introduced with obturator. The bladder was inspected. There was noted to be moderate to large amount of clots within the bladder. The clots were irrigated free using the Microvasive evacuator and Jonathan syringe. The bladder was reinspected. There was noted to be a large bladder tumor filling the bladder lumen and apparently originating from the floor. The lateral wall and anterior wall of the bladder were free of tumor. Resection of the tumor was performed in a systematic fashion beginning at the cephalad extent of the tumor. The tumor was resected in segments. Hemostasis was achieved after each section of the resection. The specimens were removed using the Microvasive evacuator. Further resection was performed. The tumor appeared to originate from the left trigone. After the tumor was more completely removed, the right ureteral orifice was able to be identified. Ureteral orifice was patent throughout dissection. The left ureteral orifice could not be identified. The tumor was fully resected. The specimens were removed and sent for pathologic examination. Following tumor resection, the bladder was able to be inspected. In fact, the bladder "looked like a bladder" with normal contour of the bladder. The bladder was noted to be trabeculated. The base of the tumor involving the left trigone extending toward the bladder neck was resected as well. Hemostasis was achieved using electrocautery. The bladder neck area of the abnormal mucosa possibly involving the tumor was resected as well. The specimens were sent for pathologic examination. The bladder was reinspected. Hemostasis was complete. The resectoscope and sheath were removed. A Robles catheter was inserted. Bladder drainage was clear. Further irrigation of bladder was performed to confirm the clear returns. Exam under anesthesia/bimanual examination and anorectal examination was performed. There was mild fullness of the bladder base. There was no fixation. There was no induration. There was no abnormal mass palpable. The patient was returned to the supine position. The patient tolerated procedure without complication. The patient was transferred to the recovery room in satisfactory condition. This was a very large tumor, greater than 6-7 cm in size. The tumor volume within the specimen cup was greater than 80 mL. The patient tolerated procedure without complication. [place] MD Meenakshi cc: Darren Guardado MD
[2018-10-13] MEDS: (Novolog) Insulin Aspart, Recombinant 100 u/ml 10 ml vial SC SCH ×4 (07:54→21:11)
[2018-10-13] MEDS: Ferric Sodium Gluconat Complex 62.5 mg/5 ml Vial IVPB SCH (10:00)
[2018-10-13] MEDS: Potassium Chloride 20 mEq ER Tab PO SCH (10:03)
[2018-10-14] MEDS: (Novolog) Insulin Aspart, Recombinant 100 u/ml 10 ml vial SC SCH ×4 (07:34→22:00)
[2018-10-14] MEDS: Potassium Chloride 20 mEq ER Tab PO SCH (09:57)
[2018-10-14] MEDS: Ferric Sodium Gluconat Complex 62.5 mg/5 ml Vial IVPB SCH (09:58)
[2018-10-15 00:06] VITALS: O2SAT 100
[2018-10-15] MEDS: (Novolog) Insulin Aspart, Recombinant 100 u/ml 10 ml vial SC SCH ×2 (08:00→12:23)
[2018-10-15] MEDS: Potassium Chloride 20 mEq ER Tab PO SCH (10:26)
[2018-10-15] MEDS: Ferric Sodium Gluconat Complex 62.5 mg/5 ml Vial IVPB SCH (10:59)
--- NOTE | 2018-10-15 14:19 | CP.PCM.PN ---
Subjective - Date & Time of Evaluation Date of Evaluation: 10/13/18 Time of Evaluation: 14:19 - Subjective Subjective: Patient was seen by earlier urologist. She still continues to have a Robles catheter. Patient is having trouble in taking care of the Robles catheter in the house. I recommended rehab, but the patient does not want to go. We will continue to monitor. In 2 days we will remove the Robles catheter and the following that we will discharge the patient home. Currently awaiting for the pathology also. Currently receiving intravenous IV iron injection. Currently also on ciprofloxacin. Objective - Vital Signs/Intake and Output Vital Signs (last 24 hours): Temp Pulse Resp BP Pulse Ox 98.7 F 83 18 131/80 100 10/15/18 09:00 10/15/18 13:01 10/15/18 09:00 10/15/18 09:00 10/14/18 23:00 Intake and Output: 10/15/18 10/15/18 06:59 18:59 Intake Total 1620 Output Total 2625 Balance -1005 - Medications Medications: Current Medications Ferric Sodium Gluconate Complex (Ferrlecit) 125 mg IVPB DAILY [facility] Stop: 10/17/18 10:01 Last Admin: 10/15/18 10:59 Dose: 125 mg Insulin Aspart (Novolog) 0 unit SC [facility]; Protocol Last Admin: 10/15/18 12:23 Dose: Not Given Metoprolol Tartrate (Lopressor) 12.5 mg PO BID [facility] Last Admin: 10/15/18 10:26 Dose: 12.5 mg Pantoprazole Sodium (Protonix Inj) 40 mg IVP DAILY [facility] Last Admin: 10/15/18 10:28 Dose: 40 mg Potassium Chloride (K-Dur 20 Meq Er Tab) 20 meq PO DAILY [facility] Last Admin: 10/15/18 10:26 Dose: 20 meq Rosuvastatin Calcium (Crestor) 20 mg PO HS [facility] Last Admin: 10/14/18 21:17 Dose: 20 mg - Labs Labs: 10/12/18 08:13 10/12/18 08:13 PT 12.2 SECONDS (9.7-12.2) 10/10/18 07:25 INR 1.1 10/10/18 07:25 APTT 31 SECONDS (21-34) 10/10/18 07:25
--- NOTE | 2018-10-15 14:20 | CP.PCM.PN ---
Subjective - Date & Time of Evaluation Date of Evaluation: 10/14/18 Time of Evaluation: 14:20 - Subjective Subjective: Patient is currently doing well. Urine is clear. No chest pain or shortness of breath. We will continue to monitor. Tomorrow we will discontinue the Robles catheter and will discharge the patient following that Objective - Vital Signs/Intake and Output Vital Signs (last 24 hours): Temp Pulse Resp BP Pulse Ox 98.7 F 83 18 131/80 100 10/15/18 09:00 10/15/18 13:01 10/15/18 09:00 10/15/18 09:00 10/14/18 23:00 Intake and Output: 10/15/18 10/15/18 06:59 18:59 Intake Total 1620 Output Total 2625 Balance -1005 - Medications Medications: Current Medications Ferric Sodium Gluconate Complex (Ferrlecit) 125 mg IVPB DAILY [facility] Stop: 10/17/18 10:01 Last Admin: 10/15/18 10:59 Dose: 125 mg Insulin Aspart (Novolog) 0 unit SC [facility]; Protocol Last Admin: 10/15/18 12:23 Dose: Not Given Metoprolol Tartrate (Lopressor) 12.5 mg PO BID [facility] Last Admin: 10/15/18 10:26 Dose: 12.5 mg Pantoprazole Sodium (Protonix Inj) 40 mg IVP DAILY [facility] Last Admin: 10/15/18 10:28 Dose: 40 mg Potassium Chloride (K-Dur 20 Meq Er Tab) 20 meq PO DAILY [facility] Last Admin: 10/15/18 10:26 Dose: 20 meq Rosuvastatin Calcium (Crestor) 20 mg PO HS [facility] Last Admin: 10/14/18 21:17 Dose: 20 mg - Labs Labs: 10/12/18 08:13 10/12/18 08:13 PT 12.2 SECONDS (9.7-12.2) 10/10/18 07:25 INR 1.1 10/10/18 07:25 APTT 31 SECONDS (21-34) 10/10/18 07:25
--- NOTE | 2018-10-15 14:22 | CP.PCM.DIS ---
Provider - Provider Date of Admission: 10/05/18 15:11 Attending physician: Darren Guardado MD Consults: 10/05/18 19:57 Urology Consult Routine Comment: Consulting Provider: Kalie Arrieta Consulting Physician: Kalie Arrieta Reason for Consult: hematuria 10/05/18 21:40 Inpatient PICK UP AND DELIVERY DRIVER Core Measures Referral Routine Comment: Physician Instructions: Reason For Exam: CHF pt Time Spent in preparation of Discharge (in minutes): 45 Hospital Course - Lab Results Lab Results: Micro Results 10/05/18 13:10 Blood-Venous Blood Culture - Final NO GROWTH AFTER 5 DAYS 10/05/18 13:10 Blood-Venous Gram Stain - Final TEST NOT PERFORMED 10/05/18 12:30 Blood-Venous Blood Culture - Final NO GROWTH AFTER 5 DAYS 10/05/18 12:30 Blood-Venous Gram Stain - Final TEST NOT PERFORMED 10/06/18 15:18 Urine,Clean Catch Urine Culture - Final No Growth (<1,000 CFU/ML) 10/05/18 11:29 Urine Random Urine Culture - Final 10-50,000 CFU/ML. MULTIPLE SPECIES. PROBABLE CONTAMINATION. Most Recent Lab Values WBC 6.1 K/uL (4.8-10.8) 10/12/18 08:13 RBC 3.85 Mil/uL (3.80-5.20) 10/12/18 08:13 Hgb 9.6 g/dL (11.0-16.0) L 10/12/18 08:13 Hct 29.8 % (34.0-47.0) L 10/12/18 08:13 MCV 77.5 fL (81.0-99.0) L 10/12/18 08:13 MCH 25.0 pg (27.0-31.0) L 10/12/18 08:13 MCHC 32.3 g/dL (33.0-37.0) L 10/12/18 08:13 RDW 21.5 % (11.5-14.5) H 10/12/18 08:13 Plt Count 159 K/uL (130-400) 10/12/18 08:13 MPV 9.8 fL (7.2-11.7) 10/12/18 08:13 Neut % (Auto) 64.1 % (50.0-75.0) 10/12/18 08:13 Lymph % (Auto) 22.8 % (20.0-40.0) 10/12/18 08:13 [place] % (Auto) 11.8 % (0.0-10.0) H 10/12/18 08:13 Eos % (Auto) 0.9 % (0.0-4.0) 10/12/18 08:13 Baso % (Auto) 0.4 % (0.0-2.0) 10/12/18 08:13 Neut # (Auto) 3.9 K/uL (1.8-7.0) 10/12/18 08:13 Lymph # (Auto) 1.4 K/uL (1.0-4.3) 10/12/18 08:13 [place] # (Auto) 0.7 K/uL (0.0-0.8) 10/12/18 08:13 Eos # (Auto) 0.1 K/uL (0.0-0.7) 10/12/18 08:13 Baso # (Auto) 0.0 K/uL (0.0-0.2) 10/12/18 08:13 PT 12.2 SECONDS (9.7-12.2) 10/10/18 07:25 INR 1.1 10/10/18 07:25 APTT 31 SECONDS (21-34) 10/10/18 07:25 Puncture Site Rra 10/05/18 12:11 pCO2 33 mm/Hg (35-45) L 10/05/18 12:11 pO2 104 mm/Hg (80-100) H 10/05/18 12:11 HCO3 23.6 mmol/L (21-28) 10/05/18 12:11 ABG pH 7.43 (7.35-7.45) 10/05/18 12:11 ABG Total CO2 22.9 mmol/L (22-28) 10/05/18 12:11 ABG O2 Saturation 99.9 % (95-98) H 10/05/18 12:11 ABG Base Excess -1.7 mmol/L (-2.0-3.0) 10/05/18 12:11 Nav Test Pos 10/05/18 12:11 ABG Potassium 2.5 mmol/L (3.6-5.2) L* 10/05/18 12:11 Sodium 139.0 mmol/l (132-148) 10/05/18 12:11 Chloride 107.0 mmol/L (98-107) 10/05/18 12:11 Glucose 96 mg/dl (65-105) 10/05/18 12:11 Lactate 1.2 mmol/L (0.7-2.1) 10/05/18 12:11 Crit Value Called To Dmitry reyes md 10/05/18 12:11 Crit Value Called By Jumana easton cotton buyer 10/05/18 12:11 Crit Value Read Back Y 10/05/18 12:11 Blood Gas Notified Time 1215 10/05/18 12:11 Sodium 140 mmol/L (132-148) 10/12/18 08:13 Potassium 3.9 mmol/L (3.6-5.2) 10/12/18 08:13 Chloride 108 mmol/L (98-107) H 10/12/18 08:13 Carbon Dioxide 28 mmol/L (22-30) 10/12/18 08:13 Anion Gap 8 (10-20) L 10/12/18 08:13 BUN 6 mg/dL (7-17) L 10/12/18 08:13 Creatinine 0.6 mg/dL (0.7-1.2) L 10/12/18 08:13 Est GFR ( Amer) > 60 10/12/18 08:13 Est GFR (Non-Af Amer) > 60 10/12/18 08:13 POC Glucose (mg/dL) 111 mg/dL (65-110) H 10/14/18 21:22 Random Glucose 98 mg/dL (65-105) 10/12/18 08:13 Calcium 8.3 mg/dl (8.6-10.4) L 10/12/18 08:13 Phosphorus 3.5 mg/dL (2.5-4.5) 10/12/18 08:13 Magnesium 1.9 mg/dL (1.6-2.3) 10/12/18 08:13 Total Bilirubin 0.3 mg/dL (0.2-1.3) 10/12/18 08:13 AST 20 U/L (14-36) 10/12/18 08:13 ALT 11 U/L (9-52) 10/12/18 08:13 Alkaline Phosphatase 42 U/L (38-126) 10/12/18 08:13 Total Creatine Kinase 35 U/L (30-135) 10/10/18 07:25 CK-MB (Mass) 0.27 ng/mL (0.0-3.38) 10/10/18 07:25 Troponin I < 0.0120 ng/mL (0.00-0.120) 10/10/18 07:25 NT-Pro-B Natriuret Pep 419 pg/mL (0-900) 10/05/18 11:25 Total Protein 4.9 g/dL (6.3-8.3) L 10/12/18 08:13 Albumin 2.6 g/dL (3.5-5.0) L 10/12/18 08:13 Globulin 2.3 gm/dL (2.2-3.9) 10/12/18 08:13 Albumin/Globulin Ratio 1.1 (1.0-2.1) 10/12/18 08:13 Lipase 35 U/L (23-300) 10/05/18 11:25 Arterial Blood Potassium 2.5 mmol/L (3.6-5.2) L* 10/05/18 12:11 Urine Color Red (YELLOW) 10/07/18 04:33 Urine Clarity Turbid (Clear) 10/07/18 04:33 Urine pH 7.0 (5.0-8.0) 10/07/18 04:33 Ur Specific [place] 1.015 (1.003-1.030) 10/07/18 04:33 Urine Protein > 300 mg/dL (NEGATIVE) 10/07/18 04:33 Urine Glucose (UA) 100 mg/dL (Normal) 10/07/18 04:33 Urine Ketones 15 mg/dL (NEGATIVE) 10/07/18 04:33 Urine Blood Large (NEGATIVE) 10/07/18 04:33 Urine Nitrate Positive (NEGATIVE) H 10/07/18 04:33 Urine Bilirubin Large (NEGATIVE) 10/07/18 04:33 Urine Urobilinogen 4.0 mg/dL (0.2-1.0) H 10/07/18 04:33 Ur Leukocyte Esterase Moderate Alex/uL (Negative) 10/07/18 04:33 Urine WBC (Auto) 506 /hpf (0-5) H 10/07/18 04:33 Urine RBC (Auto) 07003 /hpf (0-3) H 10/07/18 04:33 Ur Squamous Epith Cells 28 /hpf (0-5) H 10/05/18 11:25 Stool Occult Blood Negative (NEGATIVE) 10/05/18 12:58 Blood Type O POSITIVE 10/08/18 11:22 Antibody Screen Negative 10/08/18 11:22 - Hospital Course Hospital Course: Chief complaint: hematuria for one day duration History of present illness: 78-year-old female with history of diabetes, hypertension, aortic valve replacement, CABG 1, recurrent GI bleed in the past. pt admitted with clots of bleeding while urinating for one day. no such history in the past low HB noted no chest pain no cough no abdominal pain The patient was not able to anticoagulate because of the recurrent GI bleed in the past in spite of the extensive workup including capsule endoscopy there was no source of bleeding identified, but after the CABG, valve replacement patient is not having any bleeding episodes her hemoglobin level is low. Past medical history: Hypertension diabetes CAD, aortic stenosis GI bleed Surgical history: Patient had a colonoscopy, endoscopy, capsule endoscopy, CABG 1, I did well with replacement. Allergies allergic to penicillin Family history significant for CAD, hypertension Medications reviewed Review of systems: Patient is currently having no headache or visual symptom. Episode of dizziness palpitation noted. No chest pain or shortness of breath. Leg swelling negative on examination: Vital signs stable. Chest good air entry bilaterally NONTENDER ABDOMEN NO PEDAL EDEMA BRASS BOBBIN WINDER ALERT AWAKE ORIENTED 3 NO FUNCTIONAL NEUROLOGICAL DEFICIT MIDLINE SCAR NOTED IN THE STERNAL REGION Labs reviewed low HB chest is clear Assessment and plan: 77-year-old female with a history of diabetes hypertension and hypercholesterolemia CAD, status post CABG. coronary artery bypass grafting 1 Aortic valve replacement In the past patient had a few episodes of intermittent atrial fibrillation and tachycardia. Patient is currently not on any antiplatelet medications to GI bleed. admitted with hematuria with clots also bleeding with anemia DVT GI prophylaxis and will follow the patient Course in the hospital: Patient was admitted to the hospital with a history of diabetes, hypertension, hypercholesterolemia, CAD, status post CABG x1, aortic valve replacement. Patient admitted to the hospital with the severe bleeding hematuria associated with the hemorrhagic anemia. Patient received a blood transfusion. She also had a echocardiogram. Call the urology evaluation. Recommended cystoscopy. Patient underwent initial cystoscopy, showing evidence of large bladder tumor with the bleeding, which was cauterized, and some tumor was removed, patient bleeding was stopped following that. But as the second procedure patient again underwent a second cystoscopy under transurethral resection of the bladder tumor which was done completely. Patient tolerated the procedure well. Pathology pending. Clinically now patient is stable. No more active bleeding noted. Hemoglobin stable. She will be discharged home she will follow-up as an outpatient. Final diagnosis: Severe hemorrhagic anemia Massive hematuria Intra-bladder mass, looks like urinary bladder tumor status post resection. Hypertension diabetes high cholesterol. Coronary artery bypass grafting x1 and aortic valve replacement. Patient will continue her home medication she will also continue the Cipro for 3 more days and will follow the patient Discharge Plan - Follow Up Plan Condition: FAIR Disposition: HOME/ ROUTINE Instructions: Heart Failure, Adult (DC), Gastrointestinal Bleeding (DC), Anemia of Chronic Disease (DC), Blood in the Urine (Hematuria), Adult (DC) Referrals: Darren Guardado MD [Staff Provider] - Kalie Arrieta MD [Staff Provider] -
[2018-10-15 16:08] VITALS: BP 101/65; PULSE 84; RESP 20; TEMP 98.9
== END 2018-10-15 16:34 | disposition home or self-care (01) | DRG 670 ==
LOC: C.ER 10:01 → C.9E 15:11 → C.6T 15:50
PROVIDERS: ADMIT Internal Medicine; ATTEND Internal Medicine
PROC: 30233N1 Transfusion of Nonautologous Red Blood Cells into Peripheral Vein, Percutaneous Approach (ICD-10-PCS; 2018-10-05)
PROC: 0T5B8ZZ Destruction of Bladder, Via Natural or Artificial Opening Endoscopic (ICD-10-PCS; 2018-10-08)
PROC: 0TCB8ZZ Extirpation of Matter from Bladder, Via Natural or Artificial Opening Endoscopic (ICD-10-PCS; 2018-10-08)
PROC: 0TCB8ZZ Extirpation of Matter from Bladder, Via Natural or Artificial Opening Endoscopic (ICD-10-PCS; 2018-10-10)
PROC: 0TBB8ZZ Excision of Bladder, Via Natural or Artificial Opening Endoscopic (ICD-10-PCS; principal; 2018-10-10 12:30)
DX: C67.0 Malignant neoplasm of trigone of bladder (principal); I11.0 Hypertensive heart disease with heart failure; I25.10 Atherosclerotic heart disease of native coronary artery without angina pectoris; E78.00 Pure hypercholesterolemia, unspecified; R31.0 Gross hematuria; I50.9 Heart failure, unspecified; I48.91 Unspecified atrial fibrillation; Z95.2 Presence of prosthetic heart valve; D50.0 Iron deficiency anemia secondary to blood loss (chronic); I35.0 Nonrheumatic aortic (valve) stenosis; Z95.1 Presence of aortocoronary bypass graft; Z88.0 Allergy status to penicillin; E11.9 Type 2 diabetes mellitus without complications; Z79.4 Long term (current) use of insulin